=== PATIENT | female | born 1940 | race Two or more races ===

== ENCOUNTER 2024-12-19 15:27 | Inpatient (IN) | payer MEDICARE ==
[~2024-12-19] VITALS: Ht 160 cm; Wt 79.6 kg
[~2024-12-19 15:27] MED LIST: ALBU108A5 IN; ALPR0.254 PO; CETI-120 PO; CLOT1CRE7 TOP; FURO40TA4 PO; LEVO25TA6 PO; OXYB5TAB14 PO; SEMA2INJ3 SC; SIMV20TA20 PO; ZOLP10TA6 PO
--- NOTE | 2024-12-19 16:19 | ECG ---
[facility] Test Date: 2024-12-19 Test Time: 16:02:26 Pat Name: SOHAN RODRIGUEZ Department: er Room: 0276T Gender: F Activities Attendant: gp : 1940 Requested By: LEW DOE Order Number: [id number] Reading MD: Paresh Carter Measurements Intervals [place] Rate: 65 P: 49 ND: 149 QRS: -82 QRSD: 122 T: 102 QT: 472 QTc: 491 Interpretive Statements Atrial-ventricular dual-paced complexes No further analysis attempted due to paced rhythm Electronically Signed On 12-21-2024 8:52:57 PST by Paresh Carter Please click the below link to view image of tracing.
--- NOTE | 2024-12-19 16:48 | DVH ---
EXAM: XY L SHOULDER 2+ VIEW XRAY HISTORY: fell , left shoulder pain COMPARISON: None TECHNIQUE: Four views of the left shoulder were performed. FINDINGS: See below IMPRESSION: 1. Fracture of the left proximal humerus including mildly displaced fracture of the greater tuberosit y and mildly impacted fracture of the surgical neck, consistent with 3 part fracture in the Neer clas sification. 2. Acromioclavicular hypertrophy. 3. Left chest AICD and probable cardiomegaly, not fully imaged here. 4. Surgical clips of the base of the neck likely related to prior thyroidectomy.
[2024-12-19 17:00] LABS: Basophils # (auto) 0 10 ^3/uL (0-0.2); Eosinophils # (auto) 0.1 10 ^3/uL (0-0.8); Mean Corpuscular Hgb Conc. 33.9 g/dL (32.0-36.0); Monocytes # (auto) 0.4 10 ^3/uL (0-1.3)
[2024-12-19 17:02] LABS: Basophils % (auto) 0.5 % (0.0-2.0); Eosinophils % (auto) 1.3 % (0.0-7.0); Hematocrit 37.4 % (36.0-46.0); Hemoglobin 12.7 g/dL (12.2-16.2); Lymphocytes # (auto) 1.1 10 ^3/uL (0.4-5.4); Lymphocytes % (auto) 15.1 % (10.0-50.0); Mean Corpuscular Hemoglobin 35.5 pg (28.0-32.0); Mean Corpuscular Volume 104.9 fL (80.0-100.0); Monocytes % (auto) 4.9 % (0.0-12.0); Neutrophils # (auto) 5.7 10 ^3/uL (1.6-8.6); Neutrophils % (auto) 78.2 % (37.0-80.0); Nucleated Red Blood Cells % 0.1 %; Platelet Count (auto) 195 10^3/uL (140-450); Red Blood Cells 3.56 10^6/uL (4.0-5.20); Red Cell Distribution Width 13.3 % (11.8-14.3); White Blood Cell 7.3 10^3/uL (4.4-10.8)
--- NOTE | 2024-12-19 17:20 | ED.PDOC ---
Musculoskeletal HPI Comments 84y F who presents to the ED via EMS for chief complaint of fall injury. Pt in the ED, states she was doing yard work and states she slipped and fell while in the mud today. Pt states she does not remember having a syncopal but states she felt dizzy and called EMS. Pt states in the ED, she has pain by the L shoulder and states she has pain while attempting to move her L shoulder. Pt in the ED, is alert and oriented x 4 and able to answer all questions. Pt otherwise in the ED states, she has dizziness and generalized headache but otherwise denies any other symptoms. Pt otherwise denies any other symptoms at this time. 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 Family History Family History: Unknown Social History Smoker: Non-Smoker Alcohol: Denies ETOH Use Drugs: Denies Drug Use Lives In: Home Constitutional: denies: chills, diaphoresis, fatigue, fever, malaise, sweats, weakness, others EENTM: denies: blurred vision, double vision, ear bleeding, ear discharge, ear drainage, ear pain, ear ringing, eye pain, eye redness, hearing loss, mouth pain, mouth swelling, nasal discharge, nose bleeding, nose congestion, nose pain, photophobia, tearing, throat pain, throat swelling, voice changes, others Respiratory: denies: cough, hemoptysis, orthopnea, SOB at rest, shortness of breath, SOB with excertion, stridor, wheezing, others Cardiovascular: denies: chest pain, dizzy spells, diaphoresis, Dyspnea on exertion, edema, irregular heart beat, left arm pain, lightheadedness, palpitations, PND, syncope, others Gastrointestinal: denies: abdomen distended, abdominal pain, blood streaked bowels, constipated, diarrhea, dysphagia, difficulty swallowing, hematemesis, melena, nausea, poor appetite, poor fluid intake, rectal bleeding, rectal pain, vomiting, others Genitourinary: denies: abnormal vagina bleeding, burning, dyspareunia, dysuria, flank pain, frequency, hematuria, incontinence, pain, , vagina discharge, urgency, others Neurological: reports: dizziness; denies: fainting, headache, left sided numbness, left sided weakness, numbness, paresthesia, pre-existing deficit, right sided numbness, right sided weakness, seizure, speech problems, tingling, tremors, weakness, others Musculoskeletal: reports: joint pain (L shoulder); denies: back pain, gout, joint swelling, muscle pain, muscle stiffness, neck pain, others Integumetry: denies: bruises, change in color, change in hair/nails, dryness, laceration, lesions, lumps, rash, wounds, others Allergic/Immunocompromised: denies: Difficulty Healing, Frequent Infections, Hives, Itching, others Hematologic/Lymphatic: denies: anemia, blood clots, easy bleeding, easy bruising, swollen glands, others Endocrine: denies: excessive hunger, excessive sweating, excessive thirst, excessive urination, flushing, intolerance to cold, intolerance to heat, unexplained weight gain, unexplained weight loss, others Psychiatric: denies: anxiety, bipolar disorder, depression, hopeless, panic disorder, schizophrenia, sleepless, suicidal, others All Other Systems: Reviewed and Negative Physical Exam General Appearance: Mild Distress, Normal HEENT: Normal ENT Inspection, Pharynx Normal, TMs Normal Neck: Full Range of Motion, Non-Tender, Normal, Normal Inspection Respiratory: Chest Non-Tender, Lungs Clear, No Accessory Muscle Use, No Respiratory Distress, Normal Breath Sounds Cardiovascular: Tachycardia Breast Exam: Deferred Gastrointestinal: No Organomegaly, Non Tender, No Pulsatile Mass, Normal Bowel Sounds, Soft Genitalia: Deferred Pelvic: Deferred Rectal: Deferred Extremities: Tender, Other (Tenderness left shoulder and proximal humerus) Musculoskeletal : Apperance: Normal Neurologic: Alert, shirt turner II-XII nml as Tested, No Motor Deficits, Normal Affect, Normal Mood, No Sensory Deficits Cerebellar Function: Normal Reflexes: Normal Skin: Dry, Normal Color, Warm Lymphatic: No Adenopathy Was a procedure done? Was a procedure done?: No Differential Diagnosis EXT Differential Diagnosis: Fracture, Sprain, Dislocation, DJD X-Ray, Labs, Meds, VS Vital Signs Date Time Temp Pulse Resp B/P (MAP) Pulse Ox O2 Delivery O2 Flow Rate FiO2 12/19/24 18:02 146 12/19/24 16:02 65 12/19/24 15:35 98.3 67 18 118/70 (86) 96 Lab Test 12/19/24 16:44 Range/Units White Blood Count 7.3 4.4-10.8 10^3/uL Red Blood Count 3.56 L 4.0-5.20 10^6/uL Hemoglobin 12.7 12.2-16.2 g/dL Hematocrit 37.4 36.0-46.0 % Mean Corpuscular Volume 104.9 H 80.0-100.0 fL Mean Corpuscular Hemoglobin 35.5 H 28.0-32.0 pg Mean Corpuscular Hemoglobin Concent 33.9 32.0-36.0 g/dL Red Cell Distribution Width 13.3 11.8-14.3 % Platelet Count 195 140-450 10^3/uL Mean Platelet Volume 9.5 6.9-10.8 fL Neutrophils (%) (Auto) 78.2 37.0-80.0 % Lymphocytes (%) (Auto) 15.1 10.0-50.0 % Monocytes (%) (Auto) 4.9 0.0-12.0 % Eosinophils (%) (Auto) 1.3 0.0-7.0 % Basophils (%) (Auto) 0.5 0.0-2.0 % Neutrophils # (Auto) 5.7 1.6-8.6 10 ^3/uL Lymphocytes # (Auto) 1.1 0.4-5.4 10 ^3/uL Monocytes # (Auto) 0.4 0-1.3 10 ^3/uL Eosinophils # (Auto) 0.1 0-0.8 10 ^3/uL Basophils # (Auto) 0 0-0.2 10 ^3/uL Nucleated Red Blood Cells 0.1 % Sodium Level 141 136-145 mmol/L Potassium Level 4.4 3.5-5.1 mmol/L Chloride Level 104 98-107 mmol/L Carbon Dioxide Level 30 20-31 mmol/L Anion Gap 7 5-15 Blood Urea Nitrogen 29 H 9-23 mg/dL Creatinine 1.20 H 0.550-1.02 mg/dL Glomerular Filtration Rate Calc 45 >90 mL/min BUN/Creatinine Ratio 24.2 H 10.0-20.0 Serum Glucose 106 74-106 mg/dL Calcium Level 9.9 8.7-10.4 mg/dL Magnesium Level 2.6 1.6-2.6 mg/dL Total Bilirubin 1.1 H 0.2-1.0 mg/dL Aspartate Amino Transferase (AST) 31 13-40 U/L Alanine Aminotransferase (ALT) 34 7-40 U/L Alkaline Phosphatase 104 46-116 U/L Troponin I High Sensitivity 8 </=34 ng/L Total Protein 7.0 5.7-8.2 g/dL Albumin 4.9 H 3.2-4.8 g/dL Current Medications Medications (Trade) Dose Ordered Sig/Chris Route Start Time Stop Time Status Last Admin Adenosine (Adenosine) 6 mg ONCE ONCE IV 12/19/24 18:15 12/19/24 18:16 DC 12/19/24 18:14 [place] [id number] Ph: [phone] DIAGNOSTIC IMAGING Diagnostic Imaging Report : [id number] Signed PATIENT: SOHAN RODRIGUEZ ACCT: [id number] UNIT: [id number] : 1940 LOC: ER ROOM / BED: / AGE / SEX: 84 / F ADM STATUS: REG ER SERVICE 1620 ORDERING PHYSICIAN: LEW DOE MD PROCEDURE(s): LSHD2 - L SHOULDER 2+ VIEW XRAY REASON: fell , left shoulder pain ORDER NUMBER(s): [id number], ACCESSION NUMBER(s): [id number] EXAM: XY L SHOULDER 2+ VIEW XRAY HISTORY: fell , left shoulder pain COMPARISON: None TECHNIQUE: Four views of the left shoulder were performed. FINDINGS: See below IMPRESSION: 1. Fracture of the left proximal humerus including mildly displaced fracture of the greater tuberosity and mildly impacted fracture of the surgical neck, consistent with 3 part fracture in the Neer classification. 2. Acromioclavicular hypertrophy. 3. Left chest AICD and probable cardiomegaly, not fully imaged here. 4. Surgical clips of the base of the neck likely related to prior thyroidectomy. ATED BY: NIKKO YANEZ MD DICTATED DATE/TIME: 12/19/24 1645 SIGNED BY: NIKKO YANEZ MD SIGNED DATE/TIME: 12/19/24 1645 CC: Time of 1ST Reevaluation: 17:50 Reevaluation 1ST: Unchanged Time of 2ND Reevaluation: 18:41 Reevaluation 2ND: Unchanged Patient Education/Counseling: Diagnosis, Treatment Family Education/Counseling: No Family Present Departure 1 Departure Time of Disposition: 18:41 Impression: Primary Impression: Syncope and collapse Additional Impressions: Left humeral fracture SVT (supraventricular tachycardia) Pacemaker malfunction Disposition: 09 ADMITTED INPATIENT Admit to: Tele Condition: Guarded Discharged With: Self Critical Care Note Critical Care Time?: Yes (45 min-critical care time only) Critical care comment: Total critical care time: Approximately 36 minutes Due to a high probability of clinically significant, life threatening deterioration, the patient required my highest level of preparedness to intervene emergently and I personally spent this critical care time directly and personally managing the patient. This critical care time included obtaining a history; examining the patient; pulse oximetry; ordering and review of studies; arranging urgent treatment with development of a management plan; evaluation of patient's response to treatment; frequent reassessment; and, discussions with other providers. This critical care time was performed to assess and manage the high probability of imminent, life-threatening deterioration that could result in multi-organ failure. It was exclusive of separately billable procedures and treating other patients. Stability Stability form required: No Heart Score Heart Score: Heart Score Response (Comments) Value History Moderate Suspicious 1 EKG Repolarization Disturb 1 Age >65 2 Risk Factors 1 or 2 risk factors 1 Troponin Normal limit 0 Total 5 I personally scribed for LEW DOE MD ([email or web address]) on 12/19/24 at 17:20. Electronically submitted by Emelina Chambers ([email or web address]). LEW DOE MD Dec 19, 2024 17:20
[2024-12-19 17:23] LABS: Alanine Aminotransferase 34 U/L (7-40); Alkaline Phosphatase 104 U/L (46-116); Anion Gap 7 (5-15); Aspartate Aminotransferase 31 U/L (13-40); BUN/Creatinine Ratio 24.2 (10.0-20.0); Bilirubin, Total 1.1 mg/dL (0.2-1.0); Calcium 9.9 mg/dL (8.7-10.4); Carbon Dioxide 30 mmol/L (20-31); Chloride 104 mmol/L (98-107); Glucose 106 mg/dL (74-106); Magnesium 2.6 mg/dL (1.6-2.6); Potassium 4.4 mmol/L (3.5-5.1); Sodium 141 mmol/L (136-145)
[2024-12-19 17:29] LABS: Albumin 4.9 g/dL (3.2-4.8); Blood Urea Nitrogen 29 mg/dL (9-23)
[2024-12-19] MEDS: ADENOSINE 6 MG/2 ML INJ IV ONE (18:14)
[2024-12-19 18:45] VITALS: PULSE 65; RESP 22; O2SAT 96
--- NOTE | 2024-12-19 19:08 | DVH ---
EXAM: XR Chest, 1 View CLINICAL INDICATION: SOB, syncope TECHNIQUE: Frontal view of the chest. COMPARISON: None FINDINGS: LUNGS AND PLEURAL SPACES: Unremarkable. No consolidation. No pneumothorax. HEART: Cardiomegaly without overt failure. MEDIASTINUM: Unremarkable. Normal mediastinal contour. BONES/JOINTS: Unremarkable. No acute fracture. TUBES, LINES AND DEVICES: Left-sided cardiac pacemaker. OTHER FINDINGS: . IMPRESSION: Cardiomegaly without overt failure.
[2024-12-19 19:30] VITALS: PULSE 65; RESP 10; O2SAT 97
[2024-12-19] MEDS: ONDANSETRON HCL 4 MG/2 ML VIAL IV ONE (20:30)
[2024-12-19] MEDS: MORPHINE SULFATE 4 MG/ML SYR/VIAL IV ONE (20:41)
[2024-12-19] MEDS ORDERED: IPRATROPIUM BROM 0.5 MG/2.5ML INH SOL NEB PRN (20:45)
[2024-12-19] MEDS ORDERED: LEVALBUTEROL HCL 1.25 MG/3 ML NEB NEB PRN (20:45)
[2024-12-19] MEDS: HYDROmorphone HCL 2 MG/ML VL/or syr IV ONE (21:35)
[2024-12-19 22:27] VITALS: O2SAT 100
[2024-12-19] MEDS: MELATONIN 5 MG TAB PO ONE (22:31)
[2024-12-19] MEDS: SODIUM CHLORIDE 0.9% 250 ML IV ONE (22:32)
[2024-12-19 22:37] LABS: Hematocrit 37.6 % (36.0-46.0); Hemoglobin 12.6 g/dL (12.2-16.2)
[2024-12-19 22:44] VITALS: PULSE 65; RESP 18; O2SAT 100
--- NOTE | 2024-12-19 22:55 | DVH ---
Carotid Duplex Clinical History: dizziness Comparison: None Technique: Duplex Doppler evaluation of the extracranial carotid and vertebral arteries including color Doppler and spectral/pulsed waveform analysis was performed. Findings: RIGHT SIDE: The peak systolic velocities are 75 cm/s in the CCA, 100 cm/s in the ICA. The ICA/CCA ratio is 1.3. The external carotid artery is patent with peak systolic velocity of 59 cm/s proximally. There is appropriate antegrade flow in the right vertebral artery. LEFT SIDE: The peak systolic velocities are 43 cm/s in the CCA, 148 cm/s in the ICA. The ICA/CCA ratio is 3.5. The external carotid artery is patent with peak systolic velocity of 48 cm/s proximally. There is appropriate antegrade flow in the left vertebral artery. IMPRESSION: 1. Right-side :No hemodynamically significant stenosis 2. Left side: 50-69% stenosis of the left internal carotid artery. Reference: Radiology 2003; 229:340-346 Normal ICA PSV is <125 cm/sec and no plaque or intimal thickening is visible sonographically additional criteria include ICA/CCA PSV ratio <2.0 and ICA EDV <40 cm/sec <50% ICA stenosis ICA PSV is <125 cm/sec and plaque or intimal thickening is visible sonographically additional criteria include ICA/CCA PSV ratio <2.0 and ICA EDV <40 cm/sec 50-69% ICA stenosis ICA PSV is 125-230 cm/sec and plaque is visible sonographically additional criteria include ICA/CCA PSV ratio of 2.0-4.0 and ICA EDV of 40-100 cm/sec 70% ICA stenosis but less than near occlusion ICA PSV is >230 cm/sec and visible plaque and luminal narrowing are seen at garcia-scale and color Dopp ler ultrasound (the higher the Doppler parameters lie above the threshold of 230 cm/sec, the greater the likelihood of severe disease) additional criteria include ICA/CCA PSV ratio >4 and ICA EDV >100 cm/sec
[2024-12-19 22:58] LABS: Prothrombin Time 10.6 sec (9.3-11.8)
[2024-12-19 23:01] LABS: Folate (Folic Acid) 18.57 ng/mL (>5.38)
[2024-12-19 23:06] VITALS: BP 124/51; PULSE 112; PULSE 65; RESP 17; TEMP 97.7; O2SAT 100
--- NOTE | 2024-12-19 23:08 | DVH ---
EXAM: CT HEAD WITHOUT CONTRAST INDICATION: s/p fall TECHNIQUE: CT of the head without intravenous contrast. Radiation Dose : 1. Head: CT Dose: CTDI volume is 65.73 mGy. Dose-length product is 1053.36 mGy*cm The dose indicators for CT are the volume Computed Tomography (CT) Dose Index (CTDIvol) and the Dose Length Product (DLP), and are measured in units of mGy and mGy-cm, respectively. These indicators are not patient dose, but values generated from the CT scanner acquisition factors. The report includes radiation exposure data for exposures received during this examination. COMPARISON: None FINDINGS: There is no evidence of acute intracranial hemorrhage, extra-axial collection, mass effect, midline s hift, herniation or hydrocephalus. The ventricles, sulci and cisterns are age appropriate. The garcia-white differentiation is intact. Patchy periventricular and subcortical white matter hypoattenuation is nonspecific but may be related to small vessel ischemic disease. The visualized paranasal sinuses and mastoid air cells are clear. The surrounding soft tissues and osseous structures are unremarkable. IMPRESSION: 1. No acute intracranial abnormality. Radiation optimization: All CT scans at this facility use at least one of these dose optimization fariha hniques: automated exposure control mA and/or kV adjustment per patient size (includes targeted exam s where dose is matched to clinical indication) or iterative reconstruction.
[2024-12-19 23:12] LABS: Urine Bacteria FEW /hpf (None Seen); Urine Blood Negative /uL (Negative); Urine Clarity Clear (Clear); Urine Color Light-Yellow (Yellow); Urine Protein, UAD Negative (Negative); Urine Squamous Epithelial Cell FEW /hpf (<5); Urine Urobilinogen Normal (Negative); Urine WBC < 1 /HPF (0-5)
--- NOTE | 2024-12-19 23:35 | DVHHPRES ---
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 According to the patient, on 12/19/2024 around 1:00 p.m. while he was doing yard work she felt dizzy and then fell on her knees, face and left arm. Per patient, she did not lose consciousness. Patient subsequently laid there for a little bit and hit her alarm button which prompted her daughter to come and she was subsequently brought to the hospital by the EMS. Patient is AOx4, however, somewhat of a poor historian in terms of remembering details associated with the fall. Patient states she does not remember much details until she hit the ground. Patient denies any confusion, loss of bowel or bladder control or tongue biting. Patient's own insight is that she felt dizzy due to a lack of food intake yesterday. On review of systems, patient is complaining of fever, chills, headache and shortness of breath on exertion. Left shoulder x-ray showed fracture of left proximal humerus including mildly displaced fracture greater tuberosity and mildly i mpacted surgical neck of humerus: 3 part fracture. Past Medical History heart failure with reduced ejection fraction 30% s/p AICD, hypothyroidism s/p thyroidectomy, COPD on home oxygen 2 L, hypertension, coronary artery disease, anxiety, Past Surgical History Thyroidectomy, cholecystectomy, hysterectomy, tonsillectomy Past Social History Smoking: Quit smoking 20 years ago, prior to that smoked 2-3 cigarettes daily for 4 years Alcohol: Denies Drugs: Denies Review of Systems Constitutional: Yes: Chills; No: Fever, Sweats, Weakness, Malaise, Other Eyes: No: Pain, Vision change, Conjunctivae inflammation, Eyelid inflammation, Other, Redness ENT: No: Ear pain, Ear discharge, Nose pain, Nose discharge, Nose congestion, Mouth pain, Mouth swelling, Throat pain, Throat swelling, Other Respiratory: Shortness of breath, SOB with excertion; No: Cough, Dry, Wheezing, Hemoptysis, Pleuritic Pain, Sputum, Wheezing, Other Cardiovascular: No: Chest Pain, Palpitations, Orthopnea, Paroxysmal Noc. Dyspnea, Edema, Lt Headedness, Other Gastrointestinal: No: Nausea, Vomiting, Abdominal Pain, Diarrhea, Constipation, Melena, Hematochezia, Other Genitourinary: No Dysuria, No Frequency, No Incontinence, No Hematuria, No Retention, No Other Musculoskeletal: No: other, neck pain, shoulder pain, arm pain, back pain, hand pain, leg pain, foot pain Skin: No: Rash, Lesions, Jaundice, Bruising, Other Neurological: No: Weakness, Numbness, Incoordination, Change in speech, Confusion, Seizures, Other Allergies: Coded Allergies: Morphine (Unverified Allergy, Unknown, 12/19/24) Penicillins (Unverified Allergy, Unknown, 12/19/24) Medications Current Medications Medications Dose Ordered Sig/Chris Route Start Time Stop Time Status Last Admin Dose Admin Ipratropium Superior 0.5 mg Q8HPRN PRN NEB 12/19/24 20:45 Levalbuterol HCl 1.25 mg Q8HP PRN NEB 12/19/24 20:45 Levothyroxine Sodium 75 mcg QAM@0600 PO 12/20/24 06:00 Exam Vital Signs Vital Signs Date Time Temp Pulse Resp B/P (MAP) Pulse Ox O2 Delivery O2 Flow Rate FiO2 12/19/24 22:44 65 18 100 3.0 12/19/24 22:27 Nasal Cannula 12/19/24 22:27 32 12/19/24 22:00 113/38 (63) 12/19/24 19:30 98.1 98.1 General Appearance: Alert, Oriented X3, Cooperative, No acute distress HEENT: Atraumatic, PERRLA, EOMI, Mucous membr. moist/pink Respiratory: Clear to auscultation, Normal air movement Cardiovascular: Regular rate, Normal S1, Normal S2 Abdominal: Normal bowel sounds, Other (Mild generalized tenderness to palpation in the lower abdomen) Extremities: Other (1+ lower extremity edema, stasis dermatitis on anterior aspect of bilateral lower extremities) Neuro: Normal speech, Sensation intact Psych/Mental Status: Mental status NL, Mood NL Labs/Xrays Labs Test 12/19/24 22:41 12/19/24 22:26 12/19/24 18:41 12/19/24 16:44 Range/Units Urine Color Light-yellow Yellow Urine Clarity Clear Clear Urine pH 6.0 5.0-9.0 Urine Specific [place] 1.010 1.001-1.035 Urine Protein Negative Negative Urine Ketones Negative Negative Urine Blood Negative Negative /uL Urine Nitrite Negative Negative Urine Bilirubin Negative Negative Urine Urobilinogen Normal Negative mg/dL Urine Leukocyte Esterase Negative Negative /uL Urine RBC 1 0 - 4 /hpf Urine Microscopic WBC < 1 0-5 /HPF Urine Squamous Epithelial Cells Few <5 /hpf Urine Bacteria Few H None Seen /hpf Urine Glucose Normal Normal mg/dL Hemoglobin 12.6 12.2-16.2 g/dL Hematocrit 37.6 36.0-46.0 % Prothrombin Time 10.6 9.3-11.8 sec Prothrombin Time INR 1.00 0.9-1.15 Vitamin B12 Level 359 211-911 pg/mL Vitamin D 25-Hydroxy 69.9 30.0-100 ng/mL Folic Acid 18.57 >5.38 ng/mL Thyroid Stimulating Hormone (TSH) 0.55 0.55-4.78 uIU/mL Troponin I High Sensitivity 9 </=34 ng/L White Blood Count 7.3 4.4-10.8 10^3/uL Red Blood Count 3.56 L 4.0-5.20 10^6/uL Mean Corpuscular Volume 104.9 H 80.0-100.0 fL Mean Corpuscular Hemoglobin 35.5 H 28.0-32.0 pg Mean Corpuscular Hemoglobin Concent 33.9 32.0-36.0 g/dL Red Cell Distribution Width 13.3 11.8-14.3 % Platelet Count 195 140-450 10^3/uL Mean Platelet Volume 9.5 6.9-10.8 fL Neutrophils (%) (Auto) 78.2 37.0-80.0 % Lymphocytes (%) (Auto) 15.1 10.0-50.0 % Monocytes (%) (Auto) 4.9 0.0-12.0 % Eosinophils (%) (Auto) 1.3 0.0-7.0 % Basophils (%) (Auto) 0.5 0.0-2.0 % Neutrophils # (Auto) 5.7 1.6-8.6 10 ^3/uL Lymphocytes # (Auto) 1.1 0.4-5.4 10 ^3/uL Monocytes # (Auto) 0.4 0-1.3 10 ^3/uL Eosinophils # (Auto) 0.1 0-0.8 10 ^3/uL Basophils # (Auto) 0 0-0.2 10 ^3/uL Nucleated Red Blood Cells 0.1 % Sodium Level 141 136-145 mmol/L Potassium Level 4.4 3.5-5.1 mmol/L Chloride Level 104 98-107 mmol/L Carbon Dioxide Level 30 20-31 mmol/L Anion Gap 7 5-15 Blood Urea Nitrogen 29 H 9-23 mg/dL Creatinine 1.20 H 0.550-1.02 mg/dL Glomerular Filtration Rate Calc 45 >90 mL/min BUN/Creatinine Ratio 24.2 H 10.0-20.0 Serum Glucose 106 74-106 mg/dL Calcium Level 9.9 8.7-10.4 mg/dL Magnesium Level 2.6 1.6-2.6 mg/dL Total Bilirubin 1.1 H 0.2-1.0 mg/dL Aspartate Amino Transferase (AST) 31 13-40 U/L Alanine Aminotransferase (ALT) 34 7-40 U/L Alkaline Phosphatase 104 46-116 U/L Total Protein 7.0 5.7-8.2 g/dL Albumin 4.9 H 3.2-4.8 g/dL Assessment/Plan Assessment/Plan S/p fall Left humerus 3 part fracture - head CT: No acute intracranial abnormality - left shoulder x-ray: Fracture of the left proximal humerus including mildly displaced fracture of the greater tuberosity and mildly impacted fracture of the surgical neck, consistent with 3 part fracture in the Neer classification. Acromioclavicular hypertrophy. Left chest AICD and probable cardiomegaly, not fully imaged here. Surgical clips of the base of the neck likely related to prior thyroidectomy. - [place] 5 q.6 hours as needed for pain - consulted orthopedic - ordered CXR, PT/PTT, blood type and screen - placed on cardiac diet, NPO starting midnight Dizziness: Rule out cardiac etiology Brief run of SVT - carotid Doppler: Right-side :No hemodynamically significant stenosis. Left side: 50-69% stenosis of the left internal carotid artery. - orthostatic vital signs Possible CEASAR hemodynamically mediated/VMN on questionable CKD - IV NS 250 cc bolus - monitor History of coronary artery disease s/p CABG Chronic heart failure with reduced ejection fraction 30% s/p AICD Hypertension - CXR: Cardiomegaly without overt failure. - currently holding home medications spironolactone, furosemide, metoprolol due to soft blood pressures - consulted cardiology, Dr. Maya Chronic respiratory failure on home oxygen 2 L COPD, currently stable - monitor - ipratropium levalbuterol med nebs Q 8 hours as needed - ordered COVID and influenza testing Hypothyroidism s/p thyroidectomy - resumed home medication levothyroxine 75 mcg DVT prophylaxis: SCDs Goals of care: Full code, discussed for >16 minutes on 12/19/2024 Plan discussed with patient Plan discussed with Dr. Lambert Plan discussed with: Patient, Other (RN) My Orders Orders - HECTOR GOSS Procedure Category Date Status Time Admit ADMIT 12/19/24 Transmitted 20:40 Code Status CODE 12/19/24 Transmitted 20:40 Vital Signs ALANNAH 12/19/24 In Process 20:40 Review Orders With ALANNAH 12/19/24 In Process Adm.Md 20:40 Notify Md Of Changes ALANNAH 12/19/24 In Process From Base 20:40 Advance Directive ALANNAH 12/19/24 In Process 20:40 Patient Condition ORDERS 12/19/24 Transmitted 20:40 Allergies ALANNAH 12/19/24 In Process 20:40 Notify Md Of Changes ALANNAH 12/19/24 In Process From Base 20:40 * Orthopedic Consult CONS 12/19/24 Transmitted 20:40 *Cons[address] Dr[address] Maya CONS 12/19/24 Transmitted [place] 20:40 Carotid Duplx W Color US 12/19/24 Resulted DOP 20:[address] 12/19/24 Resulted 20:40 Cardiac DIET 12/20/24 Transmitted Diet-2gna,Lofat,Lochol Breakfast Npo After Midnight DIET 12/20/24 Transmitted Breakfast Sequential ALANNAH 12/19/24 In Process Compression Device 20:40 Ipratropium Medneb PHA 12/19/24 In Process (Atrovent Medneb) 20:45 Levalbuterol Hcl PHA 12/19/24 In Process (Xopenex Medneb) 20:45 Levothyroxine Tablet PHA 12/20/24 In Process (Synthroid Tablet) 06:00 Date of Service: Dec 19, 2024 Billing Provider: SARA RICHARDSON MD Common Visit Codes: [id number] INP/OBS CARE (HIGH) HECTOR GOSS Dec 19, 2024 23:35 SARA RICHARDSON MD Dec 20, 2024 09:39
[2024-12-20] VITALS (9 sets, daily range): BP systolic 97–122; BP diastolic 43–68; PULSE 62–75; RESP 16–18; TEMP 97.8–98.2; O2SAT 94–100
[2024-12-20] MEDS: HYDROcodone-ACET 5/325MG TAB PO PRN (01:51)
[2024-12-20 02:08] LABS: COVID19 ANTIGEN SOFIA FIA NEGATIVE (NEGATIVE); Rapid Influenza A Negative (Negative); Rapid Influenza B Negative (Negative)
[2024-12-20] MEDS: LEVOTHYROXINE SODIUM 25 MCG TAB PO SCH (05:51)
[2024-12-20] MEDS ORDERED: METO25TA93 PO (10:29)
[2024-12-20] MEDS ORDERED: SPIR25TA8 PO (10:29)
[2024-12-20] MEDS ORDERED: POTA-180 PO (10:29)
[2024-12-20 10:59] LABS: Basophils # (auto) 0 10 ^3/uL (0-0.2); Basophils % (auto) 0.4 % (0.0-2.0); Eosinophils # (auto) 0 10 ^3/uL (0-0.8); Hemoglobin 11.5 g/dL (12.2-16.2); Monocytes # (auto) 0.5 10 ^3/uL (0-1.3)
[2024-12-20 11:03] LABS: Eosinophils % (auto) 0.2 % (0.0-7.0); Lymphocytes # (auto) 1.7 10 ^3/uL (0.4-5.4); Lymphocytes % (auto) 20.9 % (10.0-50.0); Mean Corpuscular Hemoglobin 35.5 pg (28.0-32.0); Mean Corpuscular Hgb Conc. 33.8 g/dL (32.0-36.0); Mean Corpuscular Volume 104.8 fL (80.0-100.0); Neutrophils # (auto) 5.9 10 ^3/uL (1.6-8.6); Neutrophils % (auto) 72.5 % (37.0-80.0); Platelet Count (auto) 158 10^3/uL (140-450); Red Blood Cells 3.24 10^6/uL (4.0-5.20); Red Cell Distribution Width 13.1 % (11.8-14.3); White Blood Cell 8.1 10^3/uL (4.4-10.8)
[2024-12-20 11:15] LABS: Anion Gap 9 (5-15); Calcium 9.4 mg/dL (8.7-10.4); Carbon Dioxide 27 mmol/L (20-31); Chloride 105 mmol/L (98-107); Potassium 3.9 mmol/L (3.5-5.1); Sodium 141 mmol/L (136-145)
[2024-12-20 11:21] LABS: BUN/Creatinine Ratio 24.4 (10.0-20.0); Blood Urea Nitrogen 22 mg/dL (9-23); Glucose 85 mg/dL (74-106)
--- NOTE | 2024-12-20 13:06 | DVHPN2 ---
Progress Note - Dictate Date Seen: Dec 19, 2024 Medical Necessity Reason Pt with a Central, PICC or Fol: No Subjective DIZZINESS NEAR SYNCOPE An 84-year-old with dilated cardiomyopathy, now to undergo Bi-V AICD implantation. The patient initially had an AICD implanted in 2009 and since then, the patient had a replacement approximately 6 years ago and now has another replacement in 2023. PERTINENT MEDICAL HISTORY: Significant for hypertension, hyperlipidemia. History of COPD. Remote history of tobacco use, discontinued smoking some 30 years ago. History of heart failure, systolic heart failure with left ventricular ejection fraction less than 30%. CURRENT MEDICATIONS: Include aspirin, Lasix, metoprolol, spironolactone, and simvastatin. She is also on home O2 therapy because of chronic lung disease as well. She denies any history of diabetes. No history of renal insufficiency. Denies any history of CVA. Denies any history of peripheral vascular disease, however. No history of myocardial infarction, even though she had angioplasty of the coronary anatomy. REVIEW OF SYSTEMS: She denies any fever, chills, melena, hematochezia, hematemesis or hemoptysis. No bleeding diathesis. No history of any GI symptomatology, inflammatory bowel disease or irritable bowel syndrome, or diarrhea or constipation. No liver disease. No history of any neurological disorders, such as seizures. Denies any swallowing difficulties. Denies any neurological symptoms as well. vital signs Vital Sign Date Time Temp Pulse Resp B/P (MAP) Pulse Ox O2 Delivery O2 Flow Rate FiO2 12/20/24 10:00 99 Nasal Cannula* 2 12/20/24 08:38 98.2 65 18 108/45 (66) 98.2 Total Intake and Output 12/19/24 12/19/24 12/20/24 14:59 22:59 06:59 Intake Total 150 ml Balance 150 ml medications Current Medications Medications Dose Ordered Sig/Chris Route Start Time Stop Time Status Last Admin Dose Admin Ipratropium [place] 0.5 mg Q8HPRN PRN NEB 12/19/24 20:45 Levalbuterol HCl 1.25 mg Q8HP PRN NEB 12/19/24 20:45 Levothyroxine Sodium 75 mcg QAM@0600 PO 12/20/24 06:00 12/20/24 05:51 75 MCG Acetaminophen/ Hydrocodone Bitart 1 tab Q6HPRN PRN PO 12/20/24 00:00 12/20/24 11:55 1 TAB objective HEENT: Pupils are reactive. Funduscopic exam shows no AV nicking, no exudates, no papilledema. Sclerae are anicteric. Extraocular muscles are intact. Tympanic membranes are moist. Oral mucosa moist. Posterior pharynx without any exudates. NECK: No JVD appreciated. Carotid pulses are 2+ symmetrical. No cervical adenopathy. No supraclavicular adenopathy. PULMONARY: Clear to auscultation. Tympanic to percussion. No rhonchi, no wheezes, no egophony. CARDIOVASCULAR: Regular rate. PMI is diffuse; however, there is a soft 1/6 systolic murmur along the left sternal border. ABDOMEN: Obese. Unable to appreciate an organomegaly. Stool guaiac is negative. Liver approximately 5 cm. No epigastric tenderness, no suprapubic tenderness, no CVA tenderness. NEUROLOGIC: The patient is intact. EXTREMITIES: Distal pulses are present. laboratory and microbiology Laboratory Tests 12/20/24 09:51 Test 12/20/24 09:51 Range/Units Serum Glucose 85 74-106 mg/dL Problem List PT WITH DILATED CM WITH ISCHEMIC COMPONENT NOW WITH DIZZINESS PT HAS A TENDENCY TO SEEK ATTENTION THIS IS HER 5tH ADMISSION IN 6 MONTHS Assessment/Plan INTERROGATE AICD ALL OTHER WORKUP THUS FAR NEGATIVE BNP NL FOR PT LYTES WNL HAVE PHYSICAL THERAPY CHECK ORTHOSTATIC BP Plan discussed with: Patient Critical Care Time(min): 35 ANNEMARIE LUND MD Dec 20, 2024 13:06
[2024-12-20] MEDS ORDERED: ALPRAZolam 0.25 MG TAB PO PRN (13:30)
[2024-12-20] MEDS ORDERED: HYDROmorphone HCL 2 MG/ML VL/or syr IV PRN (13:30)
--- NOTE | 2024-12-20 13:31 | DVHPN2 ---
Progress Note Date Seen: Dec 20, 2024 Medical Necessity Reason Pt with a Central, PICC or Fol: No Subjective Patient reports: No new complaints Review of Systems: HEENT:Normal, CVS:Normal, RESPIRATORY:Normal, GI:Normal, :Normal, MSK:Normal, NEURO:Normal Objective vital signs Vital Sign Date Time Temp Pulse Resp B/P (MAP) Pulse Ox O2 Delivery O2 Flow Rate FiO2 12/20/24 13:07 98.2 65 17 101/49 (66) 95 98.2 12/20/24 10:00 Nasal Cannula* 2 28 Total Intake and Output 12/19/24 12/19/24 12/20/24 15:00 23:00 07:00 Intake Total 150 ml Balance 150 ml medications Current Medications Medications Dose Ordered Sig/Chris Route Start Time Stop Time Status Last Admin Dose Admin Levothyroxine Sodium 75 mcg QAM@0600 PO 12/20/24 06:00 12/20/24 05:51 75 MCG Acetaminophen/ Hydrocodone Bitart 1 tab Q6HPRN PRN PO 12/20/24 00:00 12/20/24 11:55 1 TAB Hydromorphone HCl 0.5 mg Q4HPRN PRN IV 12/20/24 13:30 UNV Levothyroxine Sodium 75 mcg QAM@0600 PO 12/21/24 06:00 UNV Atorvastatin Calcium 20 mg HS PO 12/20/24 22:00 UNV Spironolactone 25 mg DAILY PO 12/21/24 10:00 UNV Examination: GENERAL:Normal, HEENT:Normal, NECK:Normal, LUNGS:Normal, LUNGS:Abnormal (on oxygen), CVS:Normal, ABDOMEN:Normal, MSK:Normal, MSK:Abnormal (left arm sling), SKIN:Normal, NEURO:Normal, :Normal laboratory and microbiology Laboratory Tests 12/20/24 09:51 Test 12/20/24 09:51 Range/Units Serum Glucose 85 74-106 mg/dL Problem List/Assessment/Plan Problem List/Assessment/Plan #1 left humeral fracture: ortho eval #2 chronic systolic heart failure #3 s/p aicd #4 hypothyroidism #5 copd #6 chronic resp failure #7 anxiety advance care planning- full code- time spent 19mins Plan discussed with: Patient My Orders My Orders Orders - THAD LEDEZMA MD Procedure Category Date Status Time Hydromorphone PHA 12/20/24 Logged Injection (Dilaudid 13:30 Levothyroxine Tablet PHA 12/21/24 Logged (Synthroid Tablet) 06:00 Atorvastatin (Lipitor) PHA 12/20/24 Logged 22:00 Spironolactone PHA 12/21/24 Logged (Aldactone) 10:00 Date of Service: Dec 20, 2024 Billing Provider: THAD LEDEZMA MD Common Visit Codes: 51044-[id number] INP/OBS CARE(HIGH) Secondary Visit Codes: 55408-FHKGASGO CARE PLAN 30 MINUTES THAD LEDEZMA MD Dec 20, 2024 13:31
[2024-12-20] MEDS: ATORVASTATIN 20 MG TAB PO SCH (20:24)
[2024-12-21] VITALS (7 sets, daily range): BP systolic 108–130; BP diastolic 59–60; PULSE 65–66; RESP 16–18; TEMP 36.7; O2SAT 95–97
[2024-12-21] MEDS: LEVOTHYROXINE SODIUM 25 MCG TAB PO SCH (05:47)
[2024-12-21] MEDS: FUROSEMIDE 20 MG TAB PO SCH (09:20)
[2024-12-21] MEDS: SPIRONOLACTONE 25 MG TAB PO SCH (09:21)
[2024-12-21] MEDS: POTASSIUM CHL 10 Meq TABLET PO SCH (09:21)
--- NOTE | 2024-12-21 12:52 | DVHINCON2 ---
Date of service: Dec 21, 2024 Referring Physician ED Reason for Consultation Left proximal humerus fracture History of Present Illness Patient is an 84-year-old female with past medical history of heart failure s/p AICD, hypothyroidism s/p thyroidectomy, COPD on home oxygen 2 L, hypertension, coronary artery disease, anxiety, who came in after sustaining a fall. According to the patient, on 12/19/2024 around 1:00 p.m. while she was doing yard work she felt dizzy and then fell on her knees, face and left arm. Per patient, she did not lose consciousness. She was subsequently brought to the hospital by the EMS. On review of systems, patient is complaining of fever, chills, headache and shortness of breath on exertion. Left shoulder x-ray showed fracture of left proximal humerus including mildly displaced fracture greater tuberosity and mildly impacted surgical neck of humerus: 3 part fracture. Past Medical History heart failure with reduced ejection fraction 30% s/p AICD, hypothyroidism s/p thyroidectomy, COPD on home oxygen 2 L, hypertension, coronary artery disease, anxiety, Past Surgical History Thyroidectomy, cholecystectomy, hysterectomy, tonsillectomy, right shoulder arthroplasty Past Social History Smoking: Quit smoking 20 years ago, prior to that smoked 2-3 cigarettes daily for 4 years Alcohol: Denies Drugs: Denies Family History: Patient reports no known family medical history. Allergies: Coded Allergies: Morphine (Unverified Allergy, Unknown, 12/19/24) Penicillins (Unverified Allergy, Unknown, 12/19/24) Home Meds Reported Medications Furosemide (Furosemide) 40 Mg Tab, 1 TAB PO BID for 90 Days, #180 12/20/24 Zolpidem Tartrate (Zolpidem Tartrate) 10 Mg Tab, 1 TAB PO HS for 90 Days, #90 12/20/24 Spironolactone (Spironolactone) 25 Mg Tab, 1 TAB PO DAILY for 90 Days, #90 12/20/24 Semaglutide (Ozempic) 2 Mg/3 Ml Inj, 0.5 MG SC QWEEKLY for 28 Days, #3 12/20/24 Albuterol Sulfate (Albuterol Sulfate Hfa) 108 Mcg/Act Aer, 2 PUFF IN BID PRN for 50 Days, #8.5 12/20/24 Oxybutynin Chloride (Oxybutynin Chloride) 5 Mg Tab, 10 MG PO BID for 85 Days, #170 12/20/24 Alprazolam (Alprazolam) 0.25 Mg Tab, 1 TAB PO BID PRN for 30 Days, #60 12/20/24 Clotrimazole (Topical) (Clotrimazole Anti-Fungal) 1 % Cre, 1 APPLIC TOP DAILY for 30 Days, #60 12/20/24 Levothyroxine Sodium (Levothyroxine Sodium) 25 Mcg Tab, 75 MCG PO DAILY for 90 Days, #90 12/20/24 Cetirizine HCl (Cetirizine Hydrochloride) 10 Mg Tab, 1 TAB PO DAILY for 90 Days, #90 12/20/24 Metoprolol Succinate (Metoprolol Succinate Er) 25 Mg Tab, 1 TAB PO DAILY for 90 Days, #90 12/20/24 Potassium Chloride (Potassium Chloride ER) 20 Meq Tab, 1 TAB PO DAILY for 90 Days, #90 12/20/24 Simvastatin (Simvastatin) 20 Mg Tab, 1 TAB PO DAILY for 90 Days, #90 12/20/24 Current Medications Current Medications Medications (Trade) Dose Ordered Sig/Chris Route PRN Reason Start Time Stop Time Status Last Admin Hydromorphone HCl (Dilaudid Injection) 0.5 mg Q4HPRN PRN IV SEVERE PAIN (7-10 PAIN SCALE) 12/20/24 13:30 Levothyroxine Sodium (Synthroid Tablet) 75 mcg QAM@0600 PO 12/21/24 06:00 Atorvastatin Calcium (Lipitor) 20 mg HS PO 12/20/24 22:00 12/20/24 20:24 Spironolactone (Aldactone) 25 mg DAILY PO 12/21/24 10:00 12/21/24 09:21 Alprazolam (Xanax Tablet) 0.25 mg Q12HP PRN PO ANXIETY 12/20/24 13:30 Furosemide (Lasix Tablet) 20 mg DAILY PO 12/21/24 10:00 12/21/24 09:20 Potassium Chloride (Klor-Con Tablet) 10 meq DAILY PO 12/21/24 10:00 12/21/24 09:21 Review of Systems Negative on 10 point review except as above Vital Signs Vital Signs Date Time Temp Pulse Resp B/P (MAP) Pulse Ox O2 Delivery O2 Flow Rate FiO2 12/21/24 11:56 98.0 66 18 123/59 (80) 96 98.0 12/21/24 10:00 Nasal Cannula* 2 28 Physical Exam Examination left shoulder Unable to test range of motion due to guarding Skin intact and no significant edema or deformity She is tender to palpation about the proximal humerus Distal neurovascularly intact X-rays left shoulder reveal a minimally displaced surgical neck and greater tuberosity fracture, osteopenia Labs/Diagnostic Data Labs Test 12/20/24 09:51 12/20/24 07:16 12/20/24 00:10 12/19/24 22:41 Range/Units White Blood Count 8.1 4.4-10.8 10^3/uL Red Blood Count 3.24 L 4.0-5.20 10^6/uL Hemoglobin 11.5 L 12.2-16.2 g/dL Hematocrit 34.0 L 36.0-46.0 % Mean Corpuscular Volume 104.8 H 80.0-100.0 fL Mean Corpuscular Hemoglobin 35.5 H 28.0-32.0 pg Mean Corpuscular Hemoglobin Concent 33.8 32.0-36.0 g/dL Red Cell Distribution Width 13.1 11.8-14.3 % Platelet Count 158 140-450 10^3/uL Mean Platelet Volume 10.0 6.9-10.8 fL Neutrophils (%) (Auto) 72.5 37.0-80.0 % Lymphocytes (%) (Auto) 20.9 10.0-50.0 % Monocytes (%) (Auto) 6.0 0.0-12.0 % Eosinophils (%) (Auto) 0.2 0.0-7.0 % Basophils (%) (Auto) 0.4 0.0-2.0 % Neutrophils # (Auto) 5.9 1.6-8.6 10 ^3/uL Lymphocytes # (Auto) 1.7 0.4-5.4 10 ^3/uL Monocytes # (Auto) 0.5 0-1.3 10 ^3/uL Eosinophils # (Auto) 0 0-0.8 10 ^3/uL Basophils # (Auto) 0 0-0.2 10 ^3/uL Nucleated Red Blood Cells 0.0 % Sodium Level 141 136-145 mmol/L Potassium Level 3.9 3.5-5.1 mmol/L Chloride Level 105 98-107 mmol/L Carbon Dioxide Level 27 20-31 mmol/L Anion Gap 9 5-15 Blood Urea Nitrogen 22 9-23 mg/dL Creatinine 0.90 0.550-1.02 mg/dL Glomerular Filtration Rate Calc 64 >90 mL/min BUN/Creatinine Ratio 24.4 H 10.0-20.0 Serum Glucose 85 74-106 mg/dL Calcium Level 9.4 8.7-10.4 mg/dL B-Type Natriuretic Peptide 474.57 0-100 pg/mL Influenza Type A Antigen Negative Negative Influenza Type B Antigen Negative Negative SARS-CoV-2 Antigen (Rapid) Negative NEGATIVE Urine Color Light-yellow Yellow Urine Clarity Clear Clear Urine pH 6.0 5.0-9.0 Urine Specific [place] 1.010 1.001-1.035 Urine Protein Negative Negative Urine Ketones Negative Negative Urine Blood Negative Negative /uL Urine Nitrite Negative Negative Urine Bilirubin Negative Negative Urine Urobilinogen Normal Negative mg/dL Urine Leukocyte Esterase Negative Negative /uL Urine RBC 1 0 - 4 /hpf Urine Microscopic WBC < 1 0-5 /HPF Urine Squamous Epithelial Cells Few <5 /hpf Urine Bacteria Few H None Seen /hpf Urine Glucose Normal Normal mg/dL Test 12/19/24 22:26 12/19/24 18:41 12/19/24 16:44 Range/Units Prothrombin Time 10.6 9.3-11.8 sec Prothrombin Time INR 1.00 0.9-1.15 Vitamin B12 Level 359 211-911 pg/mL Vitamin D 25-Hydroxy 69.9 30.0-100 ng/mL Folic Acid 18.57 >5.38 ng/mL Thyroid Stimulating Hormone (TSH) 0.55 0.55-4.78 uIU/mL Troponin I High Sensitivity 9 </=34 ng/L Magnesium Level 2.6 1.6-2.6 mg/dL Total Bilirubin 1.1 H 0.2-1.0 mg/dL Aspartate Amino Transferase (AST) 31 13-40 U/L Alanine Aminotransferase (ALT) 34 7-40 U/L Alkaline Phosphatase 104 46-116 U/L Total Protein 7.0 5.7-8.2 g/dL Albumin 4.9 H 3.2-4.8 g/dL Assessment Acute mildly displaced left proximal humerus fracture Plan/Recommendation I recommend continued with left shoulder immobilizer Encourage elbow wrist and hand range of motion Pendulums left shoulder b.i.d. Follow up Orthopedics in 2-3 weeks with new x-rays There are no indications for acute surgical intervention Plan discussed with: Patient USHA SCHMID MD Dec 21, 2024 12:52
--- NOTE | 2024-12-21 14:24 | DVHDS2 ---
Discharge Summary Date of Admission Dec 19, 2024 at 20:40 Date of Discharge: Dec 21, 2024 Labs/Diagnostic Data: Laboratory Results Test 12/20/24 09:51 12/20/24 07:16 12/20/24 00:10 12/19/24 22:41 White Blood Count 8.1 10^3/uL (4.4-10.8) Red Blood Count 3.24 10^6/uL (4.0-5.20) Hemoglobin 11.5 g/dL (12.2-16.2) Hematocrit 34.0 % (36.0-46.0) Mean Corpuscular Volume 104.8 fL (80.0-100.0) Mean Corpuscular Hemoglobin 35.5 pg (28.0-32.0) Mean Corpuscular Hemoglobin Concent 33.8 g/dL (32.0-36.0) Red Cell Distribution Width 13.1 % (11.8-14.3) Platelet Count 158 10^3/uL (140-450) Mean Platelet Volume 10.0 fL (6.9-10.8) Neutrophils (%) (Auto) 72.5 % (37.0-80.0) Lymphocytes (%) (Auto) 20.9 % (10.0-50.0) Monocytes (%) (Auto) 6.0 % (0.0-12.0) Eosinophils (%) (Auto) 0.2 % (0.0-7.0) Basophils (%) (Auto) 0.4 % (0.0-2.0) Neutrophils # (Auto) 5.9 10 ^3/uL (1.6-8.6) Lymphocytes # (Auto) 1.7 10 ^3/uL (0.4-5.4) Monocytes # (Auto) 0.5 10 ^3/uL (0-1.3) Eosinophils # (Auto) 0 10 ^3/uL (0-0.8) Basophils # (Auto) 0 10 ^3/uL (0-0.2) Nucleated Red Blood Cells 0.0 % Sodium Level 141 mmol/L (136-145) Potassium Level 3.9 mmol/L (3.5-5.1) Chloride Level 105 mmol/L (98-107) Carbon Dioxide Level 27 mmol/L (20-31) Anion Gap 9 (5-15) Blood Urea Nitrogen 22 mg/dL (9-23) Creatinine 0.90 mg/dL (0.550-1.02) Glomerular Filtration Rate Calc 64 mL/min (>90) BUN/Creatinine Ratio 24.4 (10.0-20.0) Serum Glucose 85 mg/dL (74-106) Calcium Level 9.4 mg/dL (8.7-10.4) B-Type Natriuretic Peptide 474.57 pg/mL (0-100) Influenza Type A Antigen Negative (Negative) Influenza Type B Antigen Negative (Negative) SARS-CoV-2 Antigen (Rapid) Negative (NEGATIVE) Urine Color Light-yellow (Yellow) Urine Clarity Clear (Clear) Urine pH 6.0 (5.0-9.0) Urine Specific [place] 1.010 (1.001-1.035) Urine Protein Negative (Negative) Urine Ketones Negative (Negative) Urine Blood Negative /uL (Negative) Urine Nitrite Negative (Negative) Urine Bilirubin Negative (Negative) Urine Urobilinogen Normal mg/dL (Negative) Urine Leukocyte Esterase Negative /uL (Negative) Urine RBC 1 /hpf (0 - 4) Urine Microscopic WBC < 1 /HPF (0-5) Urine Squamous Epithelial Cells Few /hpf (<5) Urine Bacteria Few /hpf (None Seen) Urine Glucose Normal mg/dL (Normal) Test 12/19/24 22:26 12/19/24 18:41 12/19/24 16:44 Prothrombin Time 10.6 sec (9.3-11.8) Prothrombin Time INR 1.00 (0.9-1.15) Vitamin B12 Level 359 pg/mL (211-911) Vitamin D 25-Hydroxy 69.9 ng/mL (30.0-100) Folic Acid 18.57 ng/mL (>5.38) Thyroid Stimulating Hormone (TSH) 0.55 uIU/mL (0.55-4.78) Troponin I High Sensitivity 9 ng/L (</=34) Magnesium Level 2.6 mg/dL (1.6-2.6) Total Bilirubin 1.1 mg/dL (0.2-1.0) Aspartate Amino Transferase (AST) 31 U/L (13-40) Alanine Aminotransferase (ALT) 34 U/L (7-40) Alkaline Phosphatase 104 U/L (46-116) Total Protein 7.0 g/dL (5.7-8.2) Albumin 4.9 g/dL (3.2-4.8) Other Laboratory Tests 12/20/24 09:51 Brief Hx & Hospital Course: SEE DICTATED NOTE Condition at Discharge: Fair Final Diagnosis/Problems List LEFT HUMERAL FRACTURE Discharge Disposition: Home Discharge Instruct/Medications Diet: Cardiac 2g Na,low cholest Activity: No Restrictions, As Tolerated Follow Up/Referral: FU WITH ORTHO IN 2 WKS Medications: RESUME HOME MEDS SCRIPT TO PHARMACY Discharge Statement: "Patient was advised to return to the ER or call 911 if any headaches, dizziness, shortness of breath, chest pain, abdominal pain, bleeding, fevers, or worsening of medical condition. Patient was counseled about treatment plan, medications, possible side effects, patientverbalized understanding. All questions were answered to the best of my ability. This discharge took greater then 30 minutes in planning, reviewing documentation, counseling the patient, and discussing with other team members." ASSESSMENT ASSESSMENT Assessment LEFT HUMERAL FRACTURE Date of Service: Dec 21, 2024 Billing Provider: THAD LEDEZMA MD Common Visit Codes: 12457-XFE/OBS DISCH DAY >30min THAD LEDEZMA MD Dec 21, 2024 14:24
[2024-12-21] MEDS ORDERED: HYDR1TAB97 PO (14:26)
--- NOTE | 2024-12-21 14:44 | DVHPN2 ---
Progress Note - Dictate Date Seen: Dec 21, 2024 Medical Necessity Reason Pt with a Central, PICC or Fol: No Subjective DIZZINESS NEAR SYNCOPE An 84-year-old with dilated cardiomyopathy, now to undergo Bi-V AICD implantation. The patient initially had an AICD implanted in 2009 and since then, the patient had a replacement approximately 6 years ago and now has another replacement in 2023. PERTINENT MEDICAL HISTORY: Significant for hypertension, hyperlipidemia. History of COPD. Remote history of tobacco use, discontinued smoking some 30 years ago. History of heart failure, systolic heart failure with left ventricular ejection fraction less than 30%. CURRENT MEDICATIONS: Include aspirin, Lasix, metoprolol, spironolactone, and simvastatin. She is also on home O2 therapy because of chronic lung disease as well. She denies any history of diabetes. No history of renal insufficiency. Denies any history of CVA. Denies any history of peripheral vascular disease, however. No history of myocardial infarction, even though she had angioplasty of the coronary anatomy. REVIEW OF SYSTEMS: She denies any fever, chills, melena, hematochezia, hematemesis or hemoptysis. No bleeding diathesis. No history of any GI symptomatology, inflammatory bowel disease or irritable bowel syndrome, or diarrhea or constipation. No liver disease. No history of any neurological disorders, such as seizures. Denies any swallowing difficulties. Denies any neurological symptoms as well. vital signs Vital Sign Date Time Temp Pulse Resp B/P (MAP) Pulse Ox O2 Delivery O2 Flow Rate FiO2 12/21/24 11:56 98.0 66 18 123/59 (80) 96 98.0 12/21/24 10:00 Nasal Cannula* 2 28 Total Intake and Output 12/20/24 12/20/24 12/21/24 15:00 23:00 07:00 Intake Total 600 ml 150 ml Balance 600 ml 150 ml medications Current Medications Medications Dose Ordered Sig/Chris Route Start Time Stop Time Status Last Admin Dose Admin Levothyroxine Sodium 75 mcg QAM@0600 PO 12/20/24 06:00 12/21/24 05:46 75 MCG Acetaminophen/ Hydrocodone Bitart 1 tab Q6HPRN PRN PO 12/20/24 00:00 12/20/24 21:28 1 TAB Hydromorphone HCl 0.5 mg Q4HPRN PRN IV 12/20/24 13:30 Levothyroxine Sodium 75 mcg QAM@0600 PO 12/21/24 06:00 Atorvastatin Calcium 20 mg HS PO 12/20/24 22:00 12/20/24 20:24 20 MG Spironolactone 25 mg DAILY PO 12/21/24 10:00 12/21/24 09:21 25 MG Alprazolam 0.25 mg Q12HP PRN PO 12/20/24 13:30 Furosemide 20 mg DAILY PO 12/21/24 10:00 12/21/24 09:20 20 MG Potassium Chloride 10 meq DAILY PO 12/21/24 10:00 12/21/24 09:21 10 MEQ objective HEENT: Pupils are reactive. Funduscopic exam shows no AV nicking, no exudates, no papilledema. Sclerae are anicteric. Extraocular muscles are intact. Tympanic membranes are moist. Oral mucosa moist. Posterior pharynx without any exudates. NECK: No JVD appreciated. Carotid pulses are 2+ symmetrical. No cervical adenopathy. No supraclavicular adenopathy. PULMONARY: Clear to auscultation. Tympanic to percussion. No rhonchi, no wheezes, no egophony. CARDIOVASCULAR: Regular rate. PMI is diffuse; however, there is a soft 1/6 systolic murmur along the left sternal border. ABDOMEN: Obese. Unable to appreciate an organomegaly. Stool guaiac is negative. Liver approximately 5 cm. No epigastric tenderness, no suprapubic tenderness, no CVA tenderness. NEUROLOGIC: The patient is intact. EXTREMITIES: Distal pulses are present. laboratory and microbiology Laboratory Tests 12/20/24 09:51 Test 12/20/24 09:51 Range/Units Serum Glucose 85 74-106 mg/dL Problem List PT WITH DILATED CM WITH ISCHEMIC COMPONENT NOW WITH DIZZINESS PT HAS A TENDENCY TO SEEK ATTENTION THIS IS HER 5tH ADMISSION IN 6 MONTHS Assessment/Plan INTERROGATE AICD ALL OTHER WORKUP THUS FAR NEGATIVE BNP NL FOR PT LYTES WNL HAVE PHYSICAL THERAPY CHECK ORTHOSTATIC BP MAY DC HOME FOLLOWUP IN WEEK LEFT HUMERAL FRACTURE SHOULDER IMMOBILIZER Plan discussed with: Patient ANNEMARIE LUND MD Dec 21, 2024 14:44
--- NOTE | 2024-12-21 15:25 | DVHDS ---
DATE OF DISCHARGE: 12/21/2024 HISTORY OF PRESENT ILLNESS: The patient is an 84-year-old lady who came with history of fall and subsequent pain in the left arm. The patient has history of CHF, AICD, COPD, and anxiety. HOSPITAL COURSE: The patient had a CT of the head that showed no acute abnormality. The patient had a shoulder x-ray that showed a fracture of the left proximal humerus, which was mildly displaced. The patient was seen in orthopedic consult by Dr. Pinedo, who recommended conservative treatment with a left shoulder immobilizer. The patient will be discharged home to resume her home medications as well as to be on [place] p.r.n. for pain. The patient will also be placed on [place] p.r.n. for pain. The patient will follow up with Orthopedics in 2 weeks and with her primary care in the next 2 weeks. FINAL DIAGNOSES: Therefore, * Status post fall with left humeral fracture. * Chronic systolic heart failure. * History of automatic implantable cardioverter-defibrillator. * Hypothyroidism. * Chronic obstructive pulmonary disease. * Chronic respiratory failure. * Anxiety. Time spent in discharge planning and review of plan with the patient and nursing was 39 minutes. MD KUSHAL Pitt/[place] TID: [id number] RECEIPT: [id number]
[2024-12-22 09:08] LABS: Hepatitis B Surface Antigen Negative (Negative)
[2024-12-22 09:39] LABS: Hepatitis C Antibody Negative (Negative)
--- NOTE | 2024-12-22 10:23 | ECG ---
[facility] Test Date: 2024-12-19 Test Time: 18:02:24 Pat Name: SOHAN RODRIGUEZ Department: ER Room: [facility]6T A Gender: F Service Desk Lead: HESHAM : 1940 Requested By: LEW DOE Order Number: [id number] Reading MD: Paresh Carter Measurements Intervals [place] Rate: 143 P: 0 KS: 0 QRS: 194 QRSD: 137 T: -4 QT: 330 QTc: 509 Interpretive Statements Wide-QRS tachycardia Nonspecific intraventricular conduction delay Baseline wander in lead(s) V6 Electronically Signed On 12-23-2024 13:09:25 PST by Paresh Carter Please click the below link to view image of tracing.
== END 2024-12-21 16:00 | disposition home or self-care (01) | DRG 562 ==
LOC: EDBD 15:27 → ER 15:27 → TELE 20:40 → TELE-WESTW 23:11
PROVIDERS: ATTEND Internal Medicine
DX: S42.292A Other displaced fracture of upper end of left humerus, initial encounter for closed fracture (principal); N17.0 Acute kidney failure with tubular necrosis; I47.10 Supraventricular tachycardia, unspecified; I50.22 Chronic systolic (congestive) heart failure; J96.10 Chronic respiratory failure, unspecified whether with hypoxia or hypercapnia; Z20.822 Contact with and (suspected) exposure to COVID-19; J44.9 Chronic obstructive pulmonary disease, unspecified; E89.0 Postprocedural hypothyroidism; E78.5 Hyperlipidemia, unspecified; F41.9 Anxiety disorder, unspecified; I11.0 Hypertensive heart disease with heart failure; I25.10 Atherosclerotic heart disease of native coronary artery without angina pectoris; Z96.611 Presence of right artificial shoulder joint; Z87.891 Personal history of nicotine dependence; Z99.81 Dependence on supplemental oxygen; Z95.810 Presence of automatic (implantable) cardiac defibrillator; Z90.710 Acquired absence of both cervix and uterus; Z90.49 Acquired absence of other specified parts of digestive tract; W18.39XA Other fall on same level, initial encounter; Y93.89 Activity, other specified; Y92.89 Other specified places as the place of occurrence of the external cause; Y99.8 Other external cause status
CPT/HCPCS: 36415; 70450; 71045; 73030; 80048; 80053; 81001; 82306; 82607; 82746; 83735; 83880; 84443; 84484; 85014; 85018; 85025; 85610; 86803; 86850; 86900; 86901; 87340; 87426; 87804; 93005; 93886; 99291; G0378; J0153; J2405

== ENCOUNTER 2025-04-17 09:06 | Inpatient (IN) | payer MEDICARE ==
[~2025-04-17] VITALS: Ht 154.9 cm; Wt 81.1 kg
[~2025-04-17 09:06] MED LIST changes: +HYDR1TAB97 PO; +METO25TA93 PO; +POTA-180 PO; +SPIR25TA8 PO
--- NOTE | 2025-04-17 09:38 | ED.PDOC ---
History of Present Illness HPI Comments 84 year old female presents to the ED with a chief compliant of headache s/p fall onset last night. Patient states she was trying to kill a bug when she fell forward, hit head on tile floor. Patient took Tylenol and Aspirin about 5 hours ago, applied ice to forehead shortly after the fall. Patient is currently experiencing headache with lightheadedness. PMHx HTN, HLD, CHF. Denies LOC, chest pain, nausea, vomiting, diarrhea, blurry vision, changes in vision, fevers, chills. No other symptoms or modifying factors present at this time. Chief Complaint: Fall Injury Time Seen by MD: 09:15 Primary Care Provider: ANNEMARIE Reviewed Notes: Medications, Allergies Allergies: Coded Allergies: Ciprofloxacin (Verified Allergy, Unknown, 04/17/25) Ibuprofen (Verified Allergy, Unknown, 04/17/25) Morphine (Unverified Allergy, Unknown, 12/19/24) Penicillins (Unverified Allergy, Unknown, 12/19/24) Home Meds Reported Medications Furosemide (Furosemide) 40 Mg Tab, 1 TAB PO BID for 90 Days, #180 12/20/24 Zolpidem Tartrate (Zolpidem Tartrate) 10 Mg Tab, 1 TAB PO HS for 90 Days, #90 12/20/24 Spironolactone (Spironolactone) 25 Mg Tab, 1 TAB PO DAILY for 90 Days, #90 12/20/24 Semaglutide (Ozempic) 2 Mg/3 Ml Inj, 0.5 MG SC QWEEKLY for 28 Days, #3 12/20/24 Albuterol Sulfate (Albuterol Sulfate Hfa) 108 Mcg/Act Aer, 2 PUFF IN BID PRN for 50 Days, #8.5 12/20/24 Oxybutynin Chloride (Oxybutynin Chloride) 5 Mg Tab, 10 MG PO BID for 85 Days, #170 12/20/24 Alprazolam (Alprazolam) 0.25 Mg Tab, 1 TAB PO BID PRN for 30 Days, #60 12/20/24 Clotrimazole (Topical) (Clotrimazole Anti-Fungal) 1 % Cre, 1 APPLIC TOP DAILY for 30 Days, #60 12/20/24 Levothyroxine Sodium (Levothyroxine Sodium) 25 Mcg Tab, 75 MCG PO DAILY for 90 Days, #90 12/20/24 Cetirizine HCl (Cetirizine Hydrochloride) 10 Mg Tab, 1 TAB PO DAILY for 90 Days, #90 12/20/24 Metoprolol Succinate (Metoprolol Succinate Er) 25 Mg Tab, 1 TAB PO DAILY for 90 Days, #90 12/20/24 Potassium Chloride (Potassium Chloride ER) 20 Meq Tab, 1 TAB PO DAILY for 90 Days, #90 12/20/24 Simvastatin (Simvastatin) 20 Mg Tab, 1 TAB PO DAILY for 90 Days, #90 12/20/24 Discontinued Scripts Hydrocodone-Acetaminophen (Hydrocodone/Acetaminophen 5-325 mg) 1 Tab Tab, 1 TAB PO TIDP PRN for 5 Days, #15 TAB Prov:THAD LEDEZMA MD 12/21/24 Information Source: Patient Mode of Arrival: Ambulatory Severity: Moderate Timing: Hours Duration: Since onset Prehospital treatment: Pain Meds (Tylenol), Other (aspirin ) Past Medical History PAST MEDICAL HISTORY: CHF, High Lipids, HTN, Thyroid Surgical History: Unknown 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 Family History Family History: Unknown Social History Smoker: Non-Smoker Alcohol: Denies ETOH Use Drugs: Denies Drug Use Lives In: Home Constitutional: denies: chills, diaphoresis, fatigue, fever, malaise, sweats, weakness, others EENTM: denies: blurred vision, double vision, ear bleeding, ear discharge, ear drainage, ear pain, ear ringing, eye pain, eye redness, hearing loss, mouth pain, mouth swelling, nasal discharge, nose bleeding, nose congestion, nose pain, photophobia, tearing, throat pain, throat swelling, voice changes, others Respiratory: denies: cough, hemoptysis, orthopnea, SOB at rest, shortness of breath, SOB with excertion, stridor, wheezing, others Cardiovascular: denies: chest pain, dizzy spells, diaphoresis, Dyspnea on exertion, edema, irregular heart beat, left arm pain, lightheadedness, palpitations, PND, syncope, others Gastrointestinal: denies: abdomen distended, abdominal pain, blood streaked bowels, constipated, diarrhea, dysphagia, difficulty swallowing, hematemesis, melena, nausea, poor appetite, poor fluid intake, rectal bleeding, rectal pain, vomiting, others Genitourinary: denies: abnormal vagina bleeding, burning, dyspareunia, dysuria, flank pain, frequency, hematuria, incontinence, pain, , vagina discharge, urgency, others Neurological: reports: dizziness, headache; denies: fainting, left sided numbness, left sided weakness, numbness, paresthesia, pre-existing deficit, right sided numbness, right sided weakness, seizure, speech problems, tingling, tremors, weakness, others Musculoskeletal: denies: back pain, gout, joint pain, joint swelling, muscle pain, muscle stiffness, neck pain, others Integumetry: denies: bruises, change in color, change in hair/nails, dryness, laceration, lesions, lumps, rash, wounds, others Allergic/Immunocompromised: denies: Difficulty Healing, Frequent Infections, Hives, Itching, others Hematologic/Lymphatic: denies: anemia, blood clots, easy bleeding, easy bruising, swollen glands, others Endocrine: denies: excessive hunger, excessive sweating, excessive thirst, excessive urination, flushing, intolerance to cold, intolerance to heat, unexplained weight gain, unexplained weight loss, others Psychiatric: denies: anxiety, bipolar disorder, depression, hopeless, panic disorder, schizophrenia, sleepless, suicidal, others All Other Systems: Reviewed and Negative Physical Exam General Appearance: Moderate Distress, Normal HEENT: Normal ENT Inspection, Pharynx Normal, TMs Normal Neck: Full Range of Motion, Non-Tender, Normal, Normal Inspection Respiratory: Chest Non-Tender, Lungs Clear, No Accessory Muscle Use, No Respiratory Distress, Normal Breath Sounds Cardiovascular: No Edema, No JVD, No Murmur, No Gallop, Normal Peripheral Pulses, Regular Rate/Rhythm Breast Exam: Deferred Gastrointestinal: No Organomegaly, Non Tender, No Pulsatile Mass, Normal Bowel Sounds, Soft Genitalia: Deferred Pelvic: Deferred Rectal: Deferred Extremities: No calf tenderness, Normal capillary refill, Normal inspection, Normal range of motion, Non-tender, No pedal edema Musculoskeletal : Apperance: Normal Neurologic: Alert, fisher oyster II-XII nml as Tested, No Motor Deficits, Normal Affect, Normal Mood, No Sensory Deficits Cerebellar Function: Normal Reflexes: Normal Skin: Bruises (Forehead), Dry, Normal Color, Warm Peripheral Pulses: 3+ Radial (R), 3+ Radial (L) Lymphatic: No Adenopathy Was a procedure done? Was a procedure done?: No Differential Dx Considerations may include: Anxiety Muscle strain X-Ray, Labs, Meds, VS Vital Signs Date Time Temp Pulse Resp B/P (MAP) Pulse Ox O2 Delivery O2 Flow Rate FiO2 04/17/25 10:16 62 18 98 Room Air 04/17/25 10:16 97.9 62 18 121/56 (77) 98 97.9 04/17/25 09:10 98.0 65 20 125/49 (74) 98 98.0 Lab Test 04/17/25 09:30 04/17/25 09:23 Range/Units White Blood Count 4.9 4.4-10.8 10^3/uL Red Blood Count 3.85 L 4.0-5.20 10^6/uL Hemoglobin 13.4 12.2-16.2 g/dL Hematocrit 40.3 36.0-46.0 % Mean Corpuscular Volume 104.6 H 80.0-100.0 fL Mean Corpuscular Hemoglobin 34.7 H 28.0-32.0 pg Mean Corpuscular Hemoglobin Concent 33.2 32.0-36.0 g/dL Red Cell Distribution Width 12.5 11.8-14.3 % Platelet Count 174 140-450 10^3/uL Mean Platelet Volume 9.2 6.9-10.8 fL Neutrophils (%) (Auto) 69.9 37.0-80.0 % Lymphocytes (%) (Auto) 22.4 10.0-50.0 % Monocytes (%) (Auto) 5.2 0.0-12.0 % Eosinophils (%) (Auto) 1.5 0.0-7.0 % Basophils (%) (Auto) 1.0 0.0-2.0 % Neutrophils # (Auto) 3.4 1.6-8.6 10 ^3/uL Lymphocytes # (Auto) 1.1 0.4-5.4 10 ^3/uL Monocytes # (Auto) 0.3 0-1.3 10 ^3/uL Eosinophils # (Auto) 0.1 0-0.8 10 ^3/uL Basophils # (Auto) 0.1 0-0.2 10 ^3/uL Nucleated Red Blood Cells 0.1 % Sodium Level 140 136-145 mmol/L Potassium Level 4.0 3.5-5.1 mmol/L Chloride Level 102 98-107 mmol/L Carbon Dioxide Level 30 20-31 mmol/L Anion Gap 8 5-15 Blood Urea Nitrogen 27 H 9-23 mg/dL Creatinine 1.09 H 0.550-1.02 mg/dL Glomerular Filtration Rate Calc 51 >90 mL/min BUN/Creatinine Ratio 24.8 H 10.0-20.0 Serum Glucose 106 74-106 mg/dL Calcium Level 10.0 8.7-10.4 mg/dL Troponin I High Sensitivity 10 </=34 ng/L B-Type Natriuretic Peptide 298.42 0-100 pg/mL Urine Color Light-yellow Yellow Urine Clarity Clear Clear Urine pH 6.5 5.0-9.0 Urine Specific [place] 1.015 1.001-1.035 Urine Protein Negative Negative Urine Ketones Negative Negative Urine Blood Negative Negative /uL Urine Nitrite Negative Negative Urine Bilirubin Negative Negative Urine Urobilinogen Normal Negative mg/dL Urine Leukocyte Esterase Negative Negative /uL Urine RBC None seen 0 - 4 /hpf Urine Microscopic WBC 1 0-5 /HPF Urine Squamous Epithelial Cells Few <5 /hpf Urine Bacteria Few H None Seen /hpf Urine Glucose Normal Normal mg/dL [place] [address] Ph: [phone] DIAGNOSTIC IMAGING Diagnostic Imaging Report : [id number] Signed PATIENT: SOHAN RODRIGUEZ ACCT: [id number] UNIT: [id number] : 1940 LOC: ER ROOM / BED: / AGE / SEX: 84 / F ADM STATUS: REG ER SERVICE 1 ORDERING PHYSICIAN: CARMEN BANEGAS MD PROCEDURE(s): HWOCT - HEAD WITHOUT CONTRAST REASON: fall ORDER NUMBER(s): [id number], ACCESSION NUMBER(s): [id number] EXAM: CT HEAD WITHOUT CONTRAST INDICATION: Fall TECHNIQUE: CT of the head without intravenous contrast. Coronal and sagittal reformatted images are submitted. Radiation Dose : 1. Head: CT Dose: CTDI volume is 65.7 mGy. Dose-length product is 1051.6 mGy*cm The dose indicators for CT are the volume Computed Tomography (CT) Dose Index (CTDIvol) and the Dose Length Product (DLP), and are measured in units of mGy and mGy-cm, respectively. These indicators are not patient dose, but values generated from the CT scanner acquisition factors. The report includes radiation exposure data for exposures received during this examination. All CT scans at this medical facility are performed using dose modulation techniques as appropriate to a performed exam including the following: Automated exposure control was utilized; adjustment of the MA and/or KV according to patient size; and use of iterative reconstruction technique. COMPARISON: CT HEAD WITHOUT CONTRAST on DOS: 12/19/24 FINDINGS: There is no evidence of acute intracranial hemorrhage, extra-axial collection, mass effect, midline shift, herniation or hydrocephalus. The ventricles, sulci and cisterns are age appropriate. The garcia-white differentiation is intact. The visualized paranasal sinuses and mastoid air cells are clear. No depressed calvarial fracture. The surrounding soft tissues are unremarkable. IMPRESSION: 1. No acute intracranial abnormality. ATED BY: JAYE ELLIOTT MD DICTATED DATE/TIME: 04/17/25 1013 SIGNED BY: JAYE ELLIOTT MD SIGNED DATE/TIME: 04/17/25 1013 CC: Patient alert. Vitals stable. No sign of distress. Answering questions. Status post fall landing on her head. Sitting position. CT of the head reviewed does not show any acute changes. She does have a bruise on her head. Mild swelling of extremities. BNP elevated. CHF. Kidney function elevated. EKG reviewed does not show any acute changes. Explained to the patient that she will be admitted. Continue monitoring. Time of 1ST Reevaluation: 09:45 Reevaluation 1ST: Improved Patient Education/Counseling: Diagnosis, Treatment, Prognosis Family Education/Counseling: No Family Present Departure 1 Departure Time of Disposition: 17:12 Impression: Primary Impression: CHF (congestive heart failure) Qualified Codes: I50.43 - Acute on chronic combined systolic (congestive) and diastolic (congestive) heart failure Additional Impressions: Head injury Qualified Codes: S09.90XA - Unspecified injury of head, initial encounter ATN (acute tubular necrosis) Disposition: ADMITTED INPATIENT Admit to: Med Surg Condition: Guarded Critical Care Note Critical Care Time?: No Stability Stability form required: No Heart Score Heart Score: Heart Score Response (Comments) Value History Slightly Suspicious 0 EKG Normal 0 Age >65 2 Risk Factors >3 or Hx ASHD 2 Troponin Normal limit 0 Total 4 I personally scribed for CARMEN BANEGAS MD ([email or web address]) on 04/17/25 at 09:38. Electronically submitted by Geovanna Burger ([email or web address]). I personally scribed for CARMEN BANEGAS MD ([email or web address]) on 04/17/25 at 10:30. Electronically submitted by Geovanna Burger ([email or web address]). CARMEN BANEGAS MD April 17, 2025 09:38
[2025-04-17 09:41] LABS: Eosinophils # (auto) 0.1 10 ^3/uL (0-0.8); Lymphocytes # (auto) 1.1 10 ^3/uL (0.4-5.4); Monocytes # (auto) 0.3 10 ^3/uL (0-1.3)
[2025-04-17 09:43] LABS: Basophils # (auto) 0.1 10 ^3/uL (0-0.2); Eosinophils % (auto) 1.5 % (0.0-7.0); Hematocrit 40.3 % (36.0-46.0); Hemoglobin 13.4 g/dL (12.2-16.2); Lymphocytes % (auto) 22.4 % (10.0-50.0); Mean Corpuscular Hemoglobin 34.7 pg (28.0-32.0); Mean Corpuscular Hgb Conc. 33.2 g/dL (32.0-36.0); Mean Corpuscular Volume 104.6 fL (80.0-100.0); Monocytes % (auto) 5.2 % (0.0-12.0); Neutrophils # (auto) 3.4 10 ^3/uL (1.6-8.6); Neutrophils % (auto) 69.9 % (37.0-80.0); Nucleated Red Blood Cells % 0.1 %; Platelet Count (auto) 174 10^3/uL (140-450); Red Blood Cells 3.85 10^6/uL (4.0-5.20); Red Cell Distribution Width 12.5 % (11.8-14.3); White Blood Cell 4.9 10^3/uL (4.4-10.8)
[2025-04-17 09:50] LABS: Chloride 102 mmol/L (98-107); Sodium 140 mmol/L (136-145)
[2025-04-17 09:51] LABS: Anion Gap 8 (5-15); Carbon Dioxide 30 mmol/L (20-31)
[2025-04-17 09:56] LABS: Glucose 106 mg/dL (74-106)
[2025-04-17 09:57] LABS: BUN/Creatinine Ratio 24.8 (10.0-20.0)
[2025-04-17 10:07] LABS: Blood Urea Nitrogen 27 mg/dL (9-23)
[2025-04-17 10:10] LABS: Urine Bacteria FEW /hpf (None Seen); Urine Blood Negative /uL (Negative); Urine Clarity Clear (Clear); Urine Color Light-Yellow (Yellow); Urine Protein, UAD Negative (Negative); Urine Specific Gravity 1.015 (1.001-1.035); Urine Squamous Epithelial Cell FEW /hpf (<5); Urine Urobilinogen Normal (Negative); Urine WBC 1 /HPF (0-5); Urine pH 6.5 (5.0-9.0)
--- NOTE | 2025-04-17 10:15 | DVH ---
EXAM: CT HEAD WITHOUT CONTRAST INDICATION: Fall TECHNIQUE: CT of the head without intravenous contrast. Coronal and sagittal reformatted images are s ubmitted. Radiation Dose : 1. Head: CT Dose: CTDI volume is 65.7 mGy. Dose-length product is 1051.6 mGy*cm The dose indicators for CT are the volume Computed Tomography (CT) Dose Index (CTDIvol) and the Dose Length Product (DLP), and are measured in units of mGy and mGy-cm, respectively. These indicators are not patient dose, but values generated from the CT scanner acquisition factors. The report includes radiation exposure data for exposures received during this examination. All CT scans at this medical facility are performed using dose modulation techniques as appropriate to a performed exam including the following: Automated exposure control was utilized; adjustment of the MA and/or KV according to patient size; and use of iterative reconstruction technique. COMPARISON: CT HEAD WITHOUT CONTRAST on DOS: 12/19/24 FINDINGS: There is no evidence of acute intracranial hemorrhage, extra-axial collection, mass effect, midline s hift, herniation or hydrocephalus. The ventricles, sulci and cisterns are age appropriate. The garcia-white differentiation is intact. The visualized paranasal sinuses and mastoid air cells are clear. No depressed calvarial fracture. The surrounding soft tissues are unremarkable. IMPRESSION: 1. No acute intracranial abnormality.
--- NOTE | 2025-04-17 10:33 | DVH ---
XY CHEST PORTABLE, HISTORY: sob COMPARISON: XY CHEST PORTABLE on DOS: 12/19/24 XY CHEST PORTABLE on DOS: 12/19/24 TECHNICAL DATA: 1 view of the chest was obtained. FINDINGS: Lines and tubes: A cardiac pacer is seen. Cardiomediastinal silhouette: normal Pulmonary vasculature: normal Lung expansion: normal Lung airspace: normal Lung interstitium: normal Pleura: normal Pneumothorax: no Bones: Unremarkable Other: no IMPRESSION: No acute intrathoracic abnormality.
[2025-04-17] MEDS ORDERED: ONDANSETRON HCL 4 MG/2 ML VIAL IV PRN ×2 (12:15→12:30)
[2025-04-17] MEDS ORDERED: ACETAMINOPHEN 325 MG TAB PO PRN (12:15)
[2025-04-17] MEDS ORDERED: DOCUSATE SOD 100 MG CAP PO PRN (12:15)
[2025-04-17] MEDS ORDERED: HYDROcodone-ACET 5/325MG TAB PO PRN (12:15)
--- NOTE | 2025-04-17 12:36 | DVHHP2 ---
History of Present Illness Reason for Visit: Headache History of Present Illness Sammi Pantoja is an 84-year-old female with past medical history of anxiety, CHF, hypertension, hyperlipidemia, and hypothyroidism, who came in for a headache, after hitting her head last night. Patient states that last night she was trying to kill a spider, when she bent down and hit her head on the counter next to the sink. She states she did not go all the way to the ground. She came to the hospital today due to having a continued headache and lightheadedness. Cardiovascular: CHF, HTN, hyperipidemia Psych: Anxiety Endocrine: Hypothyroidism Past Surgical History: Hysterectomy, Other (Pacemaker), Tonsillectomy Smoke: No ALCOHOL: none Drugs: None Lives: Alone Domestic Violence: Neg Review of Systems Constitutional: Yes: Other (headache, lightheadedness); No: Fever, Chills, Sweats, Weakness, Malaise Eyes: No: Pain, Vision change, Conjunctivae inflammation, Eyelid inflammation, Other, Redness ENT: No: Ear pain, Ear discharge, Nose pain, Nose discharge, Nose congestion, Mouth pain, Mouth swelling, Throat pain, Throat swelling, Other Respiratory: No: Cough, Dry, Shortness of breath, SOB with excertion, Wheezing, Hemoptysis, Pleuritic Pain, Sputum, Wheezing, Other Cardiovascular: No: Chest Pain, Palpitations, Orthopnea, Paroxysmal Noc. Dyspnea, Edema, Lt Headedness, Other Gastrointestinal: No: Nausea, Vomiting, Abdominal Pain, Diarrhea, Constipation, Melena, Hematochezia, Other Genitourinary: No Dysuria, No Frequency, No Incontinence, No Hematuria, No Retention, No Other Musculoskeletal: No: other, neck pain, shoulder pain, arm pain, back pain, hand pain, leg pain, foot pain Skin: No: Rash, Lesions, Jaundice, Bruising, Other Neurological: No: Weakness, Numbness, Incoordination, Change in speech, Confusion, Seizures, Other Allergies: Coded Allergies: Ciprofloxacin (Verified Allergy, Unknown, 04/17/25) Ibuprofen (Verified Allergy, Unknown, 04/17/25) Morphine (Unverified Allergy, Unknown, 12/19/24) Penicillins (Unverified Allergy, Unknown, 12/19/24) Medications Current Medications Medications Dose Ordered Sig/Chris Route Start Time Stop Time Status Last Admin Dose Admin Sodium Chloride 10 ml Q8HR IV 04/17/25 14:00 UNV Acetaminophen/ Hydrocodone Bitart 1 tab Q4HP PRN PO 04/17/25 12:15 UNV Ondansetron HCl 4 mg Q4HP PRN IV 04/17/25 12:15 UNV Docusate Sodium 100 mg BIDPRN PRN PO 04/17/25 12:15 UNV Acetaminophen 650 mg Q6HP PRN PO 04/17/25 12:15 UNV Alprazolam 0.25 mg BIDPRN PO 04/17/25 22:00 UNV Clotrimazole 1 applic DAILY TOP 04/18/25 10:00 UNV Furosemide 40 mg BID PO 04/17/25 22:00 UNV Levothyroxine Sodium 75 mcg DAILY PO 04/18/25 10:00 UNV Oxybutynin Chloride 10 mg BID PO 04/17/25 22:00 UNV Spironolactone 25 mg DAILY PO 04/18/25 10:00 UNV Patient Own Medication 1 tab DAILY PO 04/18/25 10:00 UNV Patient Own Medication 1 tab DAILY PO 04/18/25 10:00 UNV Patient Own Medication 1 tab DAILY PO 04/18/25 10:00 UNV Exam Vital Signs Vital Signs Date Time Temp Pulse Resp B/P (MAP) Pulse Ox O2 Delivery O2 Flow Rate FiO2 04/17/25 10:16 62 18 98 Room Air 04/17/25 10:16 97.9 121/56 (77) 97.9 General Appearance: Alert, Oriented X3, Cooperative, mild distress HEENT: Atraumatic, PERRLA Respiratory: Clear to auscultation, Normal air movement Cardiovascular: Regular rate, Normal S1, Normal S2, No murmurs Abdominal: Normal bowel sounds, Soft, No tenderness, No hepatospenomegaly Extremities: No clubbing, No cyanosis, Normal pulses, No tenderness/swelling, Other (bilater pedal edema) Skin: No rashes, No breakdown, No significant lesion Neuro: Normal gait, Normal speech, Strength at 5/5 X4 ext, Normal tone Psych/Mental Status: Mental status NL, Mood NL Labs/Xrays Labs Test 04/17/25 09:30 04/17/25 09:23 Range/Units White Blood Count 4.9 4.4-10.8 10^3/uL Red Blood Count 3.85 L 4.0-5.20 10^6/uL Hemoglobin 13.4 12.2-16.2 g/dL Hematocrit 40.3 36.0-46.0 % Mean Corpuscular Volume 104.6 H 80.0-100.0 fL Mean Corpuscular Hemoglobin 34.7 H 28.0-32.0 pg Mean Corpuscular Hemoglobin Concent 33.2 32.0-36.0 g/dL Red Cell Distribution Width 12.5 11.8-14.3 % Platelet Count 174 140-450 10^3/uL Mean Platelet Volume 9.2 6.9-10.8 fL Neutrophils (%) (Auto) 69.9 37.0-80.0 % Lymphocytes (%) (Auto) 22.4 10.0-50.0 % Monocytes (%) (Auto) 5.2 0.0-12.0 % Eosinophils (%) (Auto) 1.5 0.0-7.0 % Basophils (%) (Auto) 1.0 0.0-2.0 % Neutrophils # (Auto) 3.4 1.6-8.6 10 ^3/uL Lymphocytes # (Auto) 1.1 0.4-5.4 10 ^3/uL Monocytes # (Auto) 0.3 0-1.3 10 ^3/uL Eosinophils # (Auto) 0.1 0-0.8 10 ^3/uL Basophils # (Auto) 0.1 0-0.2 10 ^3/uL Nucleated Red Blood Cells 0.1 % Sodium Level 140 136-145 mmol/L Potassium Level 4.0 3.5-5.1 mmol/L Chloride Level 102 98-107 mmol/L Carbon Dioxide Level 30 20-31 mmol/L Anion Gap 8 5-15 Blood Urea Nitrogen 27 H 9-23 mg/dL Creatinine 1.09 H 0.550-1.02 mg/dL Glomerular Filtration Rate Calc 51 >90 mL/min BUN/Creatinine Ratio 24.8 H 10.0-20.0 Serum Glucose 106 74-106 mg/dL Calcium Level 10.0 8.7-10.4 mg/dL Troponin I High Sensitivity 10 </=34 ng/L B-Type Natriuretic Peptide 298.42 0-100 pg/mL Urine Color Light-yellow Yellow Urine Clarity Clear Clear Urine pH 6.5 5.0-9.0 Urine Specific Jay 1.015 1.001-1.035 Urine Protein Negative Negative Urine Ketones Negative Negative Urine Blood Negative Negative /uL Urine Nitrite Negative Negative Urine Bilirubin Negative Negative Urine Urobilinogen Normal Negative mg/dL Urine Leukocyte Esterase Negative Negative /uL Urine RBC None seen 0 - 4 /hpf Urine Microscopic WBC 1 0-5 /HPF Urine Squamous Epithelial Cells Few <5 /hpf Urine Bacteria Few H None Seen /hpf Urine Glucose Normal Normal mg/dL EXAM: CT HEAD WITHOUT CONTRAST FINDINGS: There is no evidence of acute intracranial hemorrhage, extra-axial collection, mass effect, midline shift, herniation or hydrocephalus. The ventricles, sulci and cisterns are age appropriate. The garcia-white differentiation is intact. The visualized paranasal sinuses and mastoid air cells are clear. No depressed calvarial fracture. The surrounding soft tissues are unremarkable. IMPRESSION: 1. No acute intracranial abnormality. XY CHEST PORTABLE, FINDINGS: Lines and tubes: A cardiac pacer is seen. Cardiomediastinal silhouette: normal Pulmonary vasculature: normal Lung expansion: normal Lung airspace: normal Lung interstitium: normal Pleura: normal Pneumothorax: no Bones: Unremarkable Other: no IMPRESSION: No acute intrathoracic abnormality. Assessment/Plan Assessment/Plan Assessment: Fall with injury, CHF, Hypertension, Hypothyroidism, Anxiety, Plan: Admit to Med-Surg, Social service consult, Cardiology consult, Physical therapy evaluation, Home mediations reconciled, Plan discussed with: Patient My Orders Orders - GOGO ALMONTE Procedure Category Date Status Time Admit ADMIT 04/17/25 Transmitted 12:12 Code Status CODE 04/17/25 Transmitted 12:12 2 Gm Sodium Diet DIET 04/17/25 Transmitted Lunch Sodium Chloride Lock PHA 04/17/25 Logged (Saline Lock Ns) 14:00 Hydrocodone-Acet PHA 04/17/25 Logged 5/325mg Tab ([place] 12:15 Ondansetron Hcl PHA 04/17/25 Logged (Zofran) 12:15 Docusate Sodium PHA 04/17/25 Logged Capsule (Colace 12:15 Fall Risk Precautions ALANNAH 04/17/[address] 12:12 Complete Blood Count LAB 04/18/25 Verified 04:00 Comprehensive LAB 04/18/25 Verified Metabolic Panel 04:00 Condition: Serious ALANNAH 04/17/25 In Process 12:12 Acetaminophen Tablet PHA 04/17/25 Logged (Tylenol Tablet) 12:15 Alprazolam Tablet PHA 04/17/25 Logged (Xanax Tablet) 22:00 Clotrimazole 1% PHA 04/18/25 Logged Topical Cream 10:00 Furosemide Tablet PHA 04/17/25 Logged (Lasix Tablet) 22:00 Levothyroxine Tablet PHA 04/18/25 Logged (Synthroid Tablet) 10:00 Oxybutynin Chloride [facility] 04/17/25 Logged Tablet (Ditropan Tab 22:00 Spironolactone PHA 04/18/25 Logged (Aldactone) 10:00 (Nf) Cetirizine Hcl PHA 04/18/25 Logged (Cetirizine Hydrochl 10:00 (Nf) Metoprolol PHA 04/18/25 Logged Succinate (Metoprolol 10:00 (Nf) Simvastatin PHA 04/18/25 Logged 10:00 Date of Service: April 17, 2025 Billing Provider: GOGO ALMONTE Common Visit Codes: [id number] INP/OBS CARE (MOD) GOGO ALMONTE April 17, 2025 12:36
[2025-04-17] MEDS ORDERED: SODIUM CHLOR 0.9% PF (SALINE LOCK) 10ML VIAL/SYR IV SCH (14:00)
[2025-04-17] MEDS: SODIUM CHLOR 0.9% PF (SALINE LOCK) 10ML VIAL/SYR IV SCH (14:00)
[2025-04-17 15:57] VITALS: BP 136/87; PULSE 65; RESP 18; TEMP 97.8; O2SAT 97
[2025-04-17] MEDS ORDERED: CHOL20007 PO (18:03)
[2025-04-17] MEDS ORDERED: ASPI-543 PO (18:03)
[2025-04-17 20:00] VITALS: PULSE 65; RESP 18; O2SAT 94
[2025-04-17 21:00] VITALS: BP 102/65; PULSE 65; RESP 18; TEMP 97.4; O2SAT 94
[2025-04-17] MEDS: ATORVASTATIN 20 MG TAB PO SCH (21:21)
[2025-04-17] MEDS: FUROSEMIDE 40 MG TAB PO SCH (21:22)
[2025-04-17] MEDS: ALPRAZolam 0.25 MG TAB PO SCH (21:23)
[2025-04-17] MEDS: OXYBUTYNIN CHL 5 MG TAB PO SCH (21:24)
[2025-04-17] MEDS: HYDROcodone-ACET 5/325MG TAB PO PRN (21:24)
[2025-04-17] MEDS ORDERED: FUROSEMIDE 40 MG TAB PO SCH (22:00)
[2025-04-17] MEDS ORDERED: ALPRAZolam 0.25 MG TAB PO SCH (22:00)
[2025-04-17] MEDS ORDERED: OXYBUTYNIN CHL 5 MG TAB PO SCH (22:00)
[2025-04-18] VITALS (8 sets, daily range): BP systolic 107–144; BP diastolic 60–70; PULSE 64–72; RESP 12–20; TEMP 96.8–98.7; O2SAT 91–98
[2025-04-18] MEDS: DOCUSATE SOD 100 MG CAP PO PRN (00:23)
[2025-04-18 06:16] LABS: Basophils # (auto) 0 10 ^3/uL (0-0.2); Eosinophils # (auto) 0.1 10 ^3/uL (0-0.8); Hemoglobin 13.8 g/dL (12.2-16.2); Lymphocytes # (auto) 2.1 10 ^3/uL (0.4-5.4); Neutrophils # (auto) 3.1 10 ^3/uL (1.6-8.6)
[2025-04-18 06:17] LABS: Basophils % (auto) 0.7 % (0.0-2.0); Hematocrit 40.6 % (36.0-46.0); Lymphocytes % (auto) 37.3 % (10.0-50.0); Mean Corpuscular Hemoglobin 35.4 pg (28.0-32.0); Mean Corpuscular Hgb Conc. 34.1 g/dL (32.0-36.0); Monocytes # (auto) 0.3 10 ^3/uL (0-1.3); Monocytes % (auto) 5.9 % (0.0-12.0); Neutrophils % (auto) 54.1 % (37.0-80.0); Platelet Count (auto) 186 10^3/uL (140-450); Red Cell Distribution Width 12.8 % (11.8-14.3); White Blood Cell 5.7 10^3/uL (4.4-10.8)
[2025-04-18 06:33] LABS: Alanine Aminotransferase 23 U/L (7-40); Albumin 4.6 g/dL (3.2-4.8); Alkaline Phosphatase 85 U/L (46-116); Anion Gap 8 (5-15); Aspartate Aminotransferase 20 U/L (13-40); Blood Urea Nitrogen 20 mg/dL (9-23); Calcium 10.1 mg/dL (8.7-10.4); Carbon Dioxide 28 mmol/L (20-31); Chloride 105 mmol/L (98-107); Glucose 89 mg/dL (74-106); Potassium 4.2 mmol/L (3.5-5.1); Sodium 141 mmol/L (136-145)
--- NOTE | 2025-04-18 08:56 | DVHPN2 ---
Progress Note - Dictate Date Seen: April 18, 2025 Medical Necessity Reason Pt with a Central, PICC or Fol: No Subjective PT WITH HEAD PAIN FOLLOWING TRAUMA TO HER HEAD AFTER HITTING A TABLE TOP An 84-year-old with dilated cardiomyopathy, s/p Bi-V AICD implantation. The patient initially had an AICD implanted in 2009 and since then, the patient had a replacement approximately 6 years ago and now has another replacement in 2023. PERTINENT MEDICAL HISTORY: Significant for hypertension, hyperlipidemia. History of COPD. Remote history of tobacco use, discontinued smoking some 30 years ago. History of heart failure, systolic heart failure with left ventricular ejection fraction less than 30%. CURRENT MEDICATIONS: Include aspirin, Lasix, metoprolol, spironolactone, and simvastatin. She is also on home O2 therapy because of chronic lung disease as well. She denies any history of diabetes. No history of renal insufficiency. Denies any history of CVA. Denies any history of peripheral vascular disease, however. No history of myocardial infarction, even though she had angioplasty of the coronary anatomy. REVIEW OF SYSTEMS: She denies any fever, chills, melena, hematochezia, hematemesis or hemoptysis. No bleeding diathesis. No history of any GI symptomatology, inflammatory bowel disease or irritable bowel syndrome, or diarrhea or constipation. No liver disease. No history of any neurological disorders, such as seizures. Denies any swallowing difficulties. Denies any neurological symptoms as well. vital signs Vital Sign Date Time Temp Pulse Resp B/P (MAP) Pulse Ox O2 Delivery O2 Flow Rate FiO2 04/18/25 05:00 98.7 65 20 123/63 (83) 97 98.7 04/17/25 20:00 Room Air* 0 21 Total Intake and Output 04/17/25 04/17/25 04/18/25 15:00 23:00 07:00 Intake Total 240 ml 500 ml Output Total 150 ml Balance -150 ml 240 ml 500 ml medications Current Medications Medications Dose Ordered Sig/Chris Route Start Time Stop Time Status Last Admin Dose Admin Sodium Chloride 10 ml Q8HR IV 04/17/25 14:00 04/18/25 05:28 10 ML Ondansetron HCl 4 mg Q4HP PRN IV 04/17/25 12:30 Acetaminophen/ Hydrocodone Bitart 1 tab Q4HP PRN PO 04/17/25 12:30 04/17/25 21:24 1 TAB Docusate Sodium 100 mg BIDPRN PRN PO 04/17/25 12:30 04/18/25 00:23 100 MG Acetaminophen 650 mg Q6HP PRN PO 04/17/25 12:30 Alprazolam 0.25 mg BIDPRN PO 04/17/25 22:00 04/17/25 21:23 0.25 MG Clotrimazole 1 applic DAILY TOP 04/18/25 10:00 Furosemide 40 mg BID PO 04/17/25 22:00 04/17/25 21:22 40 MG Levothyroxine Sodium 75 mcg DAILY PO 04/18/25 10:00 Oxybutynin Chloride 10 mg BID PO 04/17/25 22:00 04/17/25 21:24 10 MG Spironolactone 25 mg DAILY PO 04/18/25 10:00 Patient Own Medication 1 tab QPM PO 04/18/25 18:00 Metoprolol Succinate 25 mg DAILY PO 04/18/25 10:00 Atorvastatin Calcium 10 mg HS PO 04/17/25 22:00 04/17/25 21:21 10 MG objective HEENT: Pupils are reactive. Funduscopic exam shows no AV nicking, no exudates, no papilledema. Sclerae are anicteric. Extraocular muscles are intact. Tympanic membranes are moist. Oral mucosa moist. Posterior pharynx without any exudates. NECK: No JVD appreciated. Carotid pulses are 2+ symmetrical. No cervical adenopathy. No supraclavicular adenopathy. PULMONARY: Clear to auscultation. Tympanic to percussion. No rhonchi, no wheezes, no egophony. CARDIOVASCULAR: Regular rate. PMI is diffuse; however, there is a soft 1/6 systolic murmur along the left sternal border. ABDOMEN: Obese. Unable to appreciate an organomegaly. Stool guaiac is negative. Liver approximately 5 cm. No epigastric tenderness, no suprapubic tenderness, no CVA tenderness. NEUROLOGIC: The patient is intact. EXTREMITIES: Distal pulses are present. CT OF HEAD NEGATIVE laboratory and microbiology Laboratory Tests 04/18/25 05:04 Test 04/18/25 05:04 Range/Units Serum Glucose 89 74-106 mg/dL Problem List TRAUMA TO HEAD WITH SOFT TISSUE INJURY' PT WITH DILATED CM WITH ISCHEMIC COMPONENT NOW WITH DIZZINESS PT HAS A TENDENCY TO SEEK ATTENTION THIS IS HER 6tH ADMISSION IN 6 MONTHS Assessment/Plan CT OF HEAD NEGATIVE MARCH DC HOME PLEASE DC HOME Plan discussed with: Patient ANNEMARIE LUND MD April 18, 2025 08:56
[2025-04-18] MEDS: LEVOTHYROXINE SODIUM 25 MCG TAB PO SCH (09:55)
[2025-04-18] MEDS: METOPROLOL SUCCINATE XL 50 MG TAB PO SCH (09:56)
[2025-04-18] MEDS: SPIRONOLACTONE 25 MG TAB PO SCH (09:57)
[2025-04-18] MEDS ORDERED: SPIRONOLACTONE 25 MG TAB PO SCH (10:00)
[2025-04-18] MEDS ORDERED: LEVOTHYROXINE SODIUM 25 MCG TAB PO SCH (10:00)
[2025-04-18] MEDS ORDERED: CETIRIZINE HCL PO SCH (10:00)
[2025-04-18] MEDS ORDERED: PATIENTS OWN MEDICATION (Simvastatin 1 TAB) PO SCH (10:00)
[2025-04-18] MEDS ORDERED: PATIENTS OWN MEDICATION (Metoprolol Succinate (Metoprolol Succinate Er) 1 TAB) PO SCH (10:00)
[2025-04-18] MEDS ORDERED: CLOTRIMAZOLE 1 % CREAM 15GM TOP SCH (10:00)
--- NOTE | 2025-04-18 10:41 | DVHPN2 ---
Progress Note Date Seen: April 18, 2025 Medical Necessity Reason Pt with a Central, PICC or Fol: No Subjective Patient reports: No new complaints Review of Systems: HEENT:Normal, CVS:Normal, RESPIRATORY:Normal, GI:Normal, :Normal, MSK:Normal, NEURO:Normal Objective vital signs Vital Sign Date Time Temp Pulse Resp B/P (MAP) Pulse Ox O2 Delivery O2 Flow Rate FiO2 04/18/25 09:57 109/61 04/18/25 09:56 65 04/18/25 08:30 96.8 12 96 96.8 04/17/25 20:00 Room Air* 0 21 Total Intake and Output 04/17/25 04/17/25 04/18/25 15:00 23:00 07:00 Intake Total 240 ml 500 ml Output Total 150 ml Balance -150 ml 240 ml 500 ml medications Current Medications Medications Dose Ordered Sig/Chris Route Start Time Stop Time Status Last Admin Dose Admin Sodium Chloride 10 ml Q8HR IV 04/17/25 14:00 04/18/25 05:28 10 ML Ondansetron HCl 4 mg Q4HP PRN IV 04/17/25 12:30 Acetaminophen/ Hydrocodone Bitart 1 tab Q4HP PRN PO 04/17/25 12:30 04/17/25 21:24 1 TAB Docusate Sodium 100 mg BIDPRN PRN PO 04/17/25 12:30 04/18/25 00:23 100 MG Acetaminophen 650 mg Q6HP PRN PO 04/17/25 12:30 Alprazolam 0.25 mg BIDPRN PO 04/17/25 22:00 04/18/25 09:54 0.25 MG Clotrimazole 1 applic DAILY TOP 04/18/25 10:00 Furosemide 40 mg BID PO 04/17/25 22:00 04/18/25 09:57 40 MG Levothyroxine Sodium 75 mcg DAILY PO 04/18/25 10:00 04/18/25 09:55 75 MCG Oxybutynin Chloride 10 mg BID PO 04/17/25 22:00 04/18/25 09:57 10 MG Spironolactone 25 mg DAILY PO 04/18/25 10:00 04/18/25 09:57 25 MG Patient Own Medication 1 tab QPM PO 04/18/25 18:00 Metoprolol Succinate 25 mg DAILY PO 04/18/25 10:00 04/18/25 09:56 25 MG Atorvastatin Calcium 10 mg HS PO 04/17/25 22:00 04/17/25 21:21 10 MG Examination: GENERAL:Normal, HEENT:Normal, NECK:Normal, LUNGS:Normal, CVS:Normal, ABDOMEN:Normal, MSK:Normal, SKIN:Normal, NEURO:Normal, :Normal laboratory and microbiology Laboratory Tests 04/18/25 05:04 Test 04/18/25 05:04 Range/Units Serum Glucose 89 74-106 mg/dL Problem List/Assessment/Plan Problem List/Assessment/Plan #1 ? fall ?syncopy with trauma to head: pt eval #2 chronic systolic heart failure s/p aicd #3 hypothyroidism #4 elevated mcv: check tsh, b 12 #5 obesity #6 copd advance care planning - full code- time spent 19 mins Plan discussed with: Patient Date of Service: April 18, 2025 Billing Provider: THAD LEDEZMA MD Common Visit Codes: [id number] INP/OBS CARE(HIGH) Secondary Visit Codes: [id number] CARE PLAN 30 MINUTES THAD LEDEZMA MD April 18, 2025 10:41
[2025-04-18] MEDS: PANTOPRAZOLE 40 MG TAB PO ONE (12:33)
[2025-04-18] MEDS: ACETAMINOPHEN 325 MG TAB PO PRN (12:34)
[2025-04-18] MEDS: CLOTRIMAZOLE 1 % CREAM 15GM TOP SCH (12:35)
[2025-04-18] MEDS ORDERED: CETIRIZINE HCL 10 MG PO SCH (18:00)
[2025-04-19 05:00] VITALS: BP 118/75; PULSE 65; RESP 18; TEMP 97.6; O2SAT 98
[2025-04-19] MEDS: PANTOPRAZOLE 40 MG TAB PO SCH (05:19)
[2025-04-19] MEDS: FUROSEMIDE 40 MG TAB PO SCH (05:21)
[2025-04-19 06:29] LABS: Anion Gap 7 (5-15); Carbon Dioxide 30 mmol/L (20-31); Chloride 103 mmol/L (98-107); Sodium 140 mmol/L (136-145)
[2025-04-19 06:30] LABS: Calcium 9.1 mg/dL (8.7-10.4)
[2025-04-19 06:35] LABS: BUN/Creatinine Ratio 19.6 (10.0-20.0); Blood Urea Nitrogen 21 mg/dL (9-23); Glucose 88 mg/dL (74-106)
[2025-04-19 06:36] LABS: Magnesium 2.5 mg/dL (1.6-2.6)
[2025-04-19 07:40] VITALS: O2SAT 94
[2025-04-19 09:00] VITALS: BP 115/71; PULSE 57; RESP 16; TEMP 97.8; O2SAT 94
--- NOTE | 2025-04-19 10:50 | DVHDS2 ---
Discharge Summary Date of Admission April 17, 2025 at 12:12 Date of Discharge: April 19, 2025 Labs/Diagnostic Data: Laboratory Results Test 04/19/25 05:45 04/18/25 05:04 04/17/25 09:30 04/17/25 09:23 Sodium Level 140 mmol/L (136-145) Potassium Level 4.0 mmol/L (3.5-5.1) Chloride Level 103 mmol/L (98-107) Carbon Dioxide Level 30 mmol/L (20-31) Anion Gap 7 (5-15) Blood Urea Nitrogen 21 mg/dL (9-23) Creatinine 1.07 mg/dL (0.550-1.02) Glomerular Filtration Rate Calc 52 mL/min (>90) BUN/Creatinine Ratio 19.6 (10.0-20.0) Serum Glucose 88 mg/dL (74-106) Calcium Level 9.1 mg/dL (8.7-10.4) Magnesium Level 2.5 mg/dL (1.6-2.6) Vitamin B12 Level 277 pg/mL (211-911) Thyroid Stimulating Hormone (TSH) 1.04 uIU/mL (0.55-4.78) White Blood Count 5.7 10^3/uL (4.4-10.8) Red Blood Count 3.90 10^6/uL (4.0-5.20) Hemoglobin 13.8 g/dL (12.2-16.2) Hematocrit 40.6 % (36.0-46.0) Mean Corpuscular Volume 104.0 fL (80.0-100.0) Mean Corpuscular Hemoglobin 35.4 pg (28.0-32.0) Mean Corpuscular Hemoglobin Concent 34.1 g/dL (32.0-36.0) Red Cell Distribution Width 12.8 % (11.8-14.3) Platelet Count 186 10^3/uL (140-450) Mean Platelet Volume 9.7 fL (6.9-10.8) Neutrophils (%) (Auto) 54.1 % (37.0-80.0) Lymphocytes (%) (Auto) 37.3 % (10.0-50.0) Monocytes (%) (Auto) 5.9 % (0.0-12.0) Eosinophils (%) (Auto) 2.0 % (0.0-7.0) Basophils (%) (Auto) 0.7 % (0.0-2.0) Neutrophils # (Auto) 3.1 10 ^3/uL (1.6-8.6) Lymphocytes # (Auto) 2.1 10 ^3/uL (0.4-5.4) Monocytes # (Auto) 0.3 10 ^3/uL (0-1.3) Eosinophils # (Auto) 0.1 10 ^3/uL (0-0.8) Basophils # (Auto) 0 10 ^3/uL (0-0.2) Nucleated Red Blood Cells 0.0 % Total Bilirubin 2.0 mg/dL (0.2-1.0) Aspartate Amino Transferase (AST) 20 U/L (13-40) Alanine Aminotransferase (ALT) 23 U/L (7-40) Alkaline Phosphatase 85 U/L (46-116) Total Protein 7.0 g/dL (5.7-8.2) Albumin 4.6 g/dL (3.2-4.8) Troponin I High Sensitivity 10 ng/L (</=34) B-Type Natriuretic Peptide 298.42 pg/mL (0-100) Urine Color Light-yellow (Yellow) Urine Clarity Clear (Clear) Urine pH 6.5 (5.0-9.0) Urine Specific [place] 1.015 (1.001-1.035) Urine Protein Negative (Negative) Urine Ketones Negative (Negative) Urine Blood Negative /uL (Negative) Urine Nitrite Negative (Negative) Urine Bilirubin Negative (Negative) Urine Urobilinogen Normal mg/dL (Negative) Urine Leukocyte Esterase Negative /uL (Negative) Urine RBC None seen /hpf (0 - 4) Urine Microscopic WBC 1 /HPF (0-5) Urine Squamous Epithelial Cells Few /hpf (<5) Urine Bacteria Few /hpf (None Seen) Urine Glucose Normal mg/dL (Normal) Other Laboratory Tests 04/19/25 05:45 04/18/25 05:04 Brief Hx & Hospital Course: see dictated note Condition at Discharge: Fair Final Diagnosis/Problems List fall Discharge Disposition: Home Discharge Instruct/Medications Diet: Cardiac 2g Na,low cholest Activity: No Restrictions, As Tolerated Follow Up/Referral: fu with dr Maya in 1 wk Medications: resume home meds script to pharmacy Discharge Statement: "Patient was advised to return to the ER or call 911 if any headaches, dizziness, shortness of breath, chest pain, abdominal pain, bleeding, fevers, or worsening of medical condition. Patient was counseled about treatment plan, medications, possible side effects, patientverbalized understanding. All questions were answered to the best of my ability. This discharge took greater then 30 minutes in planning, reviewing documentation, counseling the patient, and discussing with other team members." ASSESSMENT ASSESSMENT Assessment fall Date of Service: April 19, 2025 Billing Provider: THAD LEDEZMA MD Common Visit Codes: 62569-SNT/OBS DISCH DAY >30min THAD LEDEZMA MD April 19, 2025 10:50
[2025-04-19] MEDS ORDERED: CYAN500T25 PO (10:51)
--- NOTE | 2025-04-19 11:13 | DVHDS ---
DATE OF DISCHARGE: 04/19/2025 HISTORY OF PRESENT ILLNESS: The patient is an 84-year-old lady who was admitted with history of fall and trauma to the head. The patient has history of congestive heart failure, hypertension, hyperlipidemia, hypothyroidism, and anxiety. HOSPITAL COURSE: The patient had a CT of the head that showed no acute abnormality. The patient had a chest x-ray that was negative. She was seen in Cardiology consult by Dr. Maya. Her B12 level was low at 277. The patient is currently doing well and will be discharged home to resume her home medications as well as to be on vitamin B12 at 500 mcg daily. She will follow up with Dr. Maya in 1 week. FINAL DIAGNOSES: * Likely syncope due to autonomic imbalance. * Chronic systolic heart failure status post AICD. * Vitamin B12 deficiency. * Hypothyroidism. * Obesity. * COPD. Time spent in discharge planning and review of plan with the patient and nursing was 38 minutes. MD KUSHAL Pitt/SANDRA TID: [id number] RECEIPT: [id number]
[2025-04-19] MEDS: CYANOCOBALAMIN (B-12) 1000 MCG/1 ML VIAL IM ONE (11:48)
--- NOTE | 2025-04-19 12:34 | DVHPN2 ---
Progress Note - Dictate Date Seen: April 19, 2025 Medical Necessity Reason Pt with a Central, PICC or Fol: No Subjective PT WITH HEAD PAIN FOLLOWING TRAUMA TO HER HEAD AFTER HITTING A TABLE TOP An 84-year-old with dilated cardiomyopathy, s/p Bi-V AICD implantation. The patient initially had an AICD implanted in 2009 and since then, the patient had a replacement approximately 6 years ago and now has another replacement in 2023. PERTINENT MEDICAL HISTORY: Significant for hypertension, hyperlipidemia. History of COPD. Remote history of tobacco use, discontinued smoking some 30 years ago. History of heart failure, systolic heart failure with left ventricular ejection fraction less than 30%. CURRENT MEDICATIONS: Include aspirin, Lasix, metoprolol, spironolactone, and simvastatin. She is also on home O2 therapy because of chronic lung disease as well. She denies any history of diabetes. No history of renal insufficiency. Denies any history of CVA. Denies any history of peripheral vascular disease, however. No history of myocardial infarction, even though she had angioplasty of the coronary anatomy. REVIEW OF SYSTEMS: She denies any fever, chills, melena, hematochezia, hematemesis or hemoptysis. No bleeding diathesis. No history of any GI symptomatology, inflammatory bowel disease or irritable bowel syndrome, or diarrhea or constipation. No liver disease. No history of any neurological disorders, such as seizures. Denies any swallowing difficulties. Denies any neurological symptoms as well. vital signs Vital Sign Date Time Temp Pulse Resp B/P (MAP) Pulse Ox O2 Delivery O2 Flow Rate FiO2 04/19/25 09:30 57 115/71 04/19/25 09:00 97.8 16 94 97.8 04/19/25 07:40 Room Air* 0 21 Total Intake and Output 04/18/25 04/18/25 04/19/25 15:00 23:00 07:00 Intake Total 240 ml 230 ml Balance 240 ml 230 ml medications Current Medications Medications Dose Ordered Sig/Chris Route Start Time Stop Time Status Last Admin Dose Admin Sodium Chloride 10 ml Q8HR IV 04/17/25 14:00 04/19/25 05:21 10 ML Ondansetron HCl 4 mg Q4HP PRN IV 04/17/25 12:30 Acetaminophen/ Hydrocodone Bitart 1 tab Q4HP PRN PO 04/17/25 12:30 04/17/25 21:24 1 TAB Docusate Sodium 100 mg BIDPRN PRN PO 04/17/25 12:30 04/18/25 00:23 100 MG Acetaminophen 650 mg Q6HP PRN PO 04/17/25 12:30 04/19/25 00:29 650 MG Alprazolam 0.25 mg BIDPRN PO 04/17/25 22:00 04/19/25 09:29 0.25 MG Clotrimazole 1 applic DAILY TOP 04/18/25 10:00 04/19/25 09:31 1 APPLIC Levothyroxine Sodium 75 mcg DAILY PO 04/18/25 10:00 04/19/25 09:27 75 MCG Oxybutynin Chloride 10 mg BID PO 04/17/25 22:00 04/19/25 09:29 10 MG Spironolactone 25 mg DAILY PO 04/18/25 10:00 04/19/25 09:29 25 MG Metoprolol Succinate 25 mg DAILY PO 04/18/25 10:00 04/19/25 09:30 25 MG Atorvastatin Calcium 10 mg HS PO 04/17/25 22:00 04/18/25 21:37 10 MG Furosemide 40 mg QAM PO 04/19/25 07:00 04/19/25 05:21 40 MG Pantoprazole Sodium 40 mg DAILY@0600 PO 04/19/25 06:00 04/19/25 05:19 40 MG objective HEENT: Pupils are reactive. Funduscopic exam shows no AV nicking, no exudates, no papilledema. Sclerae are anicteric. Extraocular muscles are intact. Tympanic membranes are moist. Oral mucosa moist. Posterior pharynx without any exudates. NECK: No JVD appreciated. Carotid pulses are 2+ symmetrical. No cervical adenopathy. No supraclavicular adenopathy. PULMONARY: Clear to auscultation. Tympanic to percussion. No rhonchi, no wheezes, no egophony. CARDIOVASCULAR: Regular rate. PMI is diffuse; however, there is a soft 1/6 systolic murmur along the left sternal border. ABDOMEN: Obese. Unable to appreciate an organomegaly. Stool guaiac is negative. Liver approximately 5 cm. No epigastric tenderness, no suprapubic tenderness, no CVA tenderness. NEUROLOGIC: The patient is intact. EXTREMITIES: Distal pulses are present. CT OF HEAD NEGATIVE laboratory and microbiology Laboratory Tests 04/19/25 05:45 04/18/25 05:04 Test 04/19/25 05:45 Range/Units Serum Glucose 88 74-106 mg/dL Problem List TRAUMA TO HEAD WITH SOFT TISSUE INJURY' PT WITH DILATED CM WITH ISCHEMIC COMPONENT NOW WITH DIZZINESS PT HAS A TENDENCY TO SEEK ATTENTION THIS IS HER 6tH ADMISSION IN 6 MONTHS Assessment/Plan CT OF HEAD NEGATIVE MARCH DC HOME PLEASE DC HOME Plan discussed with: Patient ANNEMARIE LUND MD April 19, 2025 12:34
== END 2025-04-19 13:46 | disposition home health service (06) | DRG 74 ==
LOC: ER 09:06 → OVERFLOW 12:12 → ER 12:17 → EAST 16:04
PROVIDERS: ADMIT Internal Medicine; ATTEND Internal Medicine
DX: G90.89 Other disorders of autonomic nervous system (principal); I50.22 Chronic systolic (congestive) heart failure; I42.0 Dilated cardiomyopathy; I11.0 Hypertensive heart disease with heart failure; E03.9 Hypothyroidism, unspecified; F41.9 Anxiety disorder, unspecified; J44.9 Chronic obstructive pulmonary disease, unspecified; E66.9 Obesity, unspecified; E78.5 Hyperlipidemia, unspecified; E53.8 Deficiency of other specified B group vitamins; Z88.1 Allergy status to other antibiotic agents; Z88.0 Allergy status to penicillin; Z88.8 Allergy status to other drugs, medicaments and biological substances; Z79.899 Other long term (current) drug therapy; Z79.891 Long term (current) use of opiate analgesic; Z79.1 Long term (current) use of non-steroidal anti-inflammatories (NSAID); Z90.710 Acquired absence of both cervix and uterus; Z95.810 Presence of automatic (implantable) cardiac defibrillator; Z68.33 Body mass index [BMI] 33.0-33.9, adult; Z88.6 Allergy status to analgesic agent; Z79.82 Long term (current) use of aspirin; Z87.891 Personal history of nicotine dependence
CPT/HCPCS: 36415; 70450; 71045; 80048; 80053; 81001; 82607; 83735; 83880; 84443; 84484; 85025; 97110; 97116; 97163; 97530; G0378

== ENCOUNTER 2025-06-08 09:53 | Outpatient (CLI) | payer MEDICARE ==
[~2025-06-08] VITALS: Ht 152.4 cm; Wt 73.9 kg
[~2025-06-08 09:53] MED LIST changes: +ASPI-543 PO; +CHOL20007 PO; +CYAN500T25 PO; -HYDR1TAB97 PO
[2025-06-08] MEDS ORDERED: ACETAMINOPHEN 500 MG TAB or CAP PO ONE (10:26)
--- NOTE | 2025-06-27 11:54 | DVHSR ---
APPROVED REPORT Indication Hypertension/HCVD Cardiomyopathy Congestive Heart Failure Cardiomegaly Cardiac Risk Factors Hypertension: Hypercholesterolemia Surgery/Intervention AICD Procedure The above named patient was injected with 31.9 mCi of Tc99m tagged red blood cells. Gated imaging was then performed in left anterior oblique projections. Findings Calculated LV Ejection Fraction is 40%. Impression EF 40%
== END 2025-06-08 17:00 | disposition home or self-care (01) ==
LOC: Rad HDHVI 09:53
PROVIDERS: ATTEND Internal Medicine Cardiovascular Disease
DX: I11.0 Hypertensive heart disease with heart failure (principal); I50.23 Acute on chronic systolic (congestive) heart failure; E78.00 Pure hypercholesterolemia, unspecified; I42.1 Obstructive hypertrophic cardiomyopathy; Z95.810 Presence of automatic (implantable) cardiac defibrillator
CPT/HCPCS: 78472; 93017; A9505; 96374; 96375

== ENCOUNTER 2025-06-13 10:41 | Emergency (ER) | payer MEDICARE ==
[~2025-06-13] VITALS: Ht 152.4 cm; Wt 75.4 kg
[2025-06-13 10:44] VITALS: TEMP 97.9
--- NOTE | 2025-06-13 11:12 | ED.PDOC ---
HPI Comments 84 y/o F, with PMHx of CHF, HLD, HTN, and thyroid disease presents to the ED for CC of chest pain. Patient states, that she has a pace maker and it has gone off twice in the past [id number]. Patient relays, when pacemaker goes off it jolts her, causing her to have chest pain. Patient reports, to also be experiencing symptoms of headache, dizziness, and jaw pain. Patient denies shortness of breath, cough, fever, palpitations, nausea, or vomiting. No other associated symptoms, modifiers, recent injuries or sick contacts present at this time. Chief Complaint: Chest Pain Time Seen by MD: 10:50 Primary Care Provider: ANNEMARIE Reviewed Notes: Nurses Notes, Medications, Allergies Allergies: Coded Allergies: Ciprofloxacin (Verified Allergy, Unknown, 04/17/25) Ibuprofen (Verified Allergy, Unknown, 04/17/25) Morphine (Unverified Allergy, Unknown, 12/19/24) Penicillins (Unverified Allergy, Unknown, 12/19/24) Home Meds Active Scripts Cyanocobalamin (Vitamin B-12) 500 Mcg Tab, 500 MCG PO DAILY for 30 Days, #30 TAB 3 Refills Prov:THAD LEDEZMA MD 04/19/25 Reported Medications Cholecalciferol (VITAMIN D3) 2,000 Unit Tab, 1000 UNIT PO DAILY, TAB 04/17/25 Aspirin (Aspir-Low) 81 Mg Tab, 81 MG PO DAILY for 30 Days, MG 04/17/25 Furosemide (Furosemide) 40 Mg Tab, 1 TAB PO BID for 90 Days, #180 12/20/24 Zolpidem Tartrate (Zolpidem Tartrate) 10 Mg Tab, 1 TAB PO HS for 90 Days, #90 12/20/24 Spironolactone (Spironolactone) 25 Mg Tab, 1 TAB PO DAILY for 90 Days, #90 12/20/24 Semaglutide (Ozempic) 2 Mg/3 Ml Inj, 0.5 MG SC QWEEKLY for 28 Days, #3 12/20/24 Albuterol Sulfate (Albuterol Sulfate Hfa) 108 Mcg/Act Aer, 2 PUFF IN BID PRN for 50 Days, #8.5 12/20/24 Oxybutynin Chloride (Oxybutynin Chloride) 5 Mg Tab, 10 MG PO BID for 85 Days, #170 12/20/24 Alprazolam (Alprazolam) 0.25 Mg Tab, 1 TAB PO BID PRN for 30 Days, #60 12/20/24 Clotrimazole (Topical) (Clotrimazole Anti-Fungal) 1 % Cre, 1 APPLIC TOP DAILY for 30 Days, #60 12/20/24 Levothyroxine Sodium (Levothyroxine Sodium) 25 Mcg Tab, 75 MCG PO DAILY for 90 Days, #90 12/20/24 Cetirizine HCl (Cetirizine Hydrochloride) 10 Mg Tab, 1 TAB PO DAILY for 90 Days, #90 12/20/24 Metoprolol Succinate (Metoprolol Succinate Er) 25 Mg Tab, 1 TAB PO DAILY for 90 Days, #90 12/20/24 Potassium Chloride (Potassium Chloride ER) 20 Meq Tab, 1 TAB PO DAILY for 90 Days, #90 12/20/24 Simvastatin (Simvastatin) 20 Mg Tab, 1 TAB PO DAILY for 90 Days, #90 12/20/24 Information Source: Patient Mode of Arrival: Wheelchair Severity: Moderate Timing: Weeks Duration: Since onset Prehospital treatment: None Location: Substernal Radiation: No Radiation Onset: At Rest Cardiac Risk Factors: Hyperlipidemia, HTN PE Risk Factors: None History of: None Modifying Factors: Nothing Associated Signs and Symptoms: None Past Medical History PAST MEDICAL HISTORY: CHF, High Lipids, HTN, Thyroid Surgical History: Unknown [employer] History: Unknown Family History Family History: Unknown Social History Smoker: Non-Smoker Alcohol: Denies ETOH Use Drugs: Denies Drug Use Lives In: Home Constitutional: denies: chills, diaphoresis, fatigue, fever, malaise, sweats, weakness, others EENTM: denies: blurred vision, double vision, ear bleeding, ear discharge, ear drainage, ear pain, ear ringing, eye pain, eye redness, hearing loss, mouth pain, mouth swelling, nasal discharge, nose bleeding, nose congestion, nose pain, photophobia, tearing, throat pain, throat swelling, voice changes, others Respiratory: denies: cough, hemoptysis, orthopnea, SOB at rest, shortness of breath, SOB with excertion, stridor, wheezing, others Cardiovascular: reports: chest pain; denies: dizzy spells, diaphoresis, Dyspnea on exertion, edema, irregular heart beat, left arm pain, lightheadedness, palpitations, PND, syncope, others Gastrointestinal: denies: abdomen distended, abdominal pain, blood streaked bowels, constipated, diarrhea, dysphagia, difficulty swallowing, hematemesis, melena, nausea, poor appetite, poor fluid intake, rectal bleeding, rectal pain, vomiting, others Genitourinary: denies: abnormal vagina bleeding, burning, dyspareunia, dysuria, flank pain, frequency, hematuria, incontinence, pain, , vagina discharge, urgency, others Neurological: reports: dizziness, headache; denies: fainting, left sided numbness, left sided weakness, numbness, paresthesia, pre-existing deficit, right sided numbness, right sided weakness, seizure, speech problems, tingling, tremors, weakness, others Musculoskeletal: denies: back pain, gout, joint pain, joint swelling, muscle pain, muscle stiffness, neck pain, others Integumetry: denies: bruises, change in color, change in hair/nails, dryness, laceration, lesions, lumps, rash, wounds, others Allergic/Immunocompromised: denies: Difficulty Healing, Frequent Infections, Hives, Itching, others Hematologic/Lymphatic: denies: anemia, blood clots, easy bleeding, easy bruisi ng, swollen glands, others Endocrine: denies: excessive hunger, excessive sweating, excessive thirst, exce ssive urination, flushing, intolerance to cold, intolerance to heat, unexplained weight gain, unexplained weight loss, others Psychiatric: denies: anxiety, bipolar disorder, depression, hopeless, panic disorder, schizophrenia, sleepless, suicidal, others All Other Systems: Reviewed and Negative Physical Exam General Appearance: Moderate Distress HEENT: Normal ENT Inspection, Pharynx Normal, TMs Normal Neck: Full Range of Motion, Non-Tender, Normal, Normal Inspection Respiratory: Chest Non-Tender, Lungs Clear, No Accessory Muscle Use, No Respiratory Distress, Normal Breath Sounds Cardiovascular: No Edema, No JVD, No Murmur, No Gallop, Normal Peripheral Pulses, Regular Rate/Rhythm Breast Exam: Deferred Gastrointestinal: No Organomegaly, Non Tender, No Pulsatile Mass, Normal Bowel Sounds, Soft Genitalia: Deferred Pelvic: Deferred Rectal: Deferred Extremities: No calf tenderness, Normal capillary refill, Normal inspection, Normal range of motion, Non-tender, No pedal edema Musculoskeletal : Apperance: Normal Neurologic: Alert, faculty i on call medical assistant II-XII nml as Tested, No Motor Deficits, Normal Affect, Normal Mood, No Sensory Deficits Cerebellar Function: Normal Reflexes: Normal Skin: Dry, Normal Color, Warm Peripheral Pulses: 3+ Radial (R), 3+ Radial (L) Lymphatic: No Adenopathy EKG EKG : Pulse Rate (adult): 65 [place]: Normal Cardiac Rhythm: NSR Block: None Hypertrophy: None ST: Normal Was a procedure done? Was a procedure done?: No CP Differential Dx Differential Diagnosis: A-fib, A-Flutter, Angina, Anxiety / Panic Attack, Atrial Dysrhythmia, Electrolyte Disorder Differential Diagnosis: CHF Differential Diagnosis: Angina, Chest Wall Pain, Costochondritis X-Ray, Labs, Meds, VS Vital Signs Date Time Temp Pulse Resp B/P (MAP) Pulse Ox O2 Delivery O2 Flow Rate FiO2 06/13/25 11:49 65 06/13/25 11:12 65 06/13/25 10:48 65 06/13/25 10:44 97.9 64 17 120/80 (93) 98 97.9 Lab Test 06/13/25 11:34 06/13/25 10:55 06/13/25 10:53 Range/Units Troponin I High Sensitivity 8 10 </=34 ng/L Urine Color Colorless Yellow Urine Clarity Clear Clear Urine pH 6.5 5.0-9.0 Urine Specific [place] 1.002 1.001-1.035 Urine Protein Negative Negative Urine Ketones Negative Negative Urine Blood Negative Negative /uL Urine Nitrite Negative Negative Urine Bilirubin Negative Negative Urine Urobilinogen Normal Negative mg/dL Urine Leukocyte Esterase Negative Negative /uL Urine RBC <1 0 - 4 /hpf Urine Microscopic WBC < 1 0-5 /HPF Urine Squamous Epithelial Cells None seen <5 /hpf Urine Bacteria Few H None Seen /hpf Urine Glucose Normal Normal mg/dL White Blood Count 5.6 4.4-10.8 10^3/uL Red Blood Count 3.57 L 4.0-5.20 10^6/uL Hemoglobin 12.7 12.2-16.2 g/dL Hematocrit 37.6 36.0-46.0 % Mean Corpuscular Volume 105.3 H 80.0-100.0 fL Mean Corpuscular Hemoglobin 35.7 H 28.0-32.0 pg Mean Corpuscular Hemoglobin Concent 33.8 32.0-36.0 g/dL Red Cell Distribution Width 13.2 11.8-14.3 % Platelet Count 179 140-450 10^3/uL Mean Platelet Volume 10.4 6.9-10.8 fL Neutrophils (%) (Auto) 68.7 37.0-80.0 % Lymphocytes (%) (Auto) 22.0 10.0-50.0 % Monocytes (%) (Auto) 6.7 0.0-12.0 % Eosinophils (%) (Auto) 1.5 0.0-7.0 % Basophils (%) (Auto) 1.1 0.0-2.0 % Neutrophils # (Auto) 3.9 1.6-8.6 10 ^3/uL Lymphocytes # (Auto) 1.2 0.4-5.4 10 ^3/uL Monocytes # (Auto) 0.4 0-1.3 10 ^3/uL Eosinophils # (Auto) 0.1 0-0.8 10 ^3/uL Basophils # (Auto) 0.1 0-0.2 10 ^3/uL Nucleated Red Blood Cells 0.4 % Platelet Estimate Adequate Clumped Platelets None Sodium Level 137 136-145 mmol/L Potassium Level 3.7 3.5-5.1 mmol/L Chloride Level 101 98-107 mmol/L Carbon Dioxide Level 28 20-31 mmol/L Anion Gap 8 5-15 Blood Urea Nitrogen 15 9-23 mg/dL Creatinine 0.91 0.550-1.02 mg/dL Glomerular Filtration Rate Calc 63 >90 mL/min BUN/Creatinine Ratio 16.5 10.0-20.0 Serum Glucose 95 74-106 mg/dL Calcium Level 9.8 8.7-10.4 mg/dL Patient alert. Complaining of chest pain. Vitals stable. Answering questions. History of coronary artery disease with pacemaker placement. Possibly pacemaker needs to be checked. Possible CHF. Reviewed her previous visit. Explained to the patient. Continue to monitor. EKG reviewed does not show any acute changes. [facility] [place] [id number] [place] [id number] Ph: [phone] DIAGNOSTIC IMAGING Diagnostic Imaging Report : [id number] Signed PATIENT: SOHAN RODRIGUEZ ACCT: [id number] UNIT: [id number] : 1940 LOC: ER ROOM / BED: / AGE / SEX: 84 / F ADM STATUS: REG ER SERVICE 1055 ORDERING PHYSICIAN: CARMEN BANEGAS MD PROCEDURE(s): CXRP - CHEST PORTABLE REASON: sob ORDER NUMBER(s): [id number], ACCESSION NUMBER(s): [id number] INDICATION: sob TECHNIQUE: Frontal view of the chest. COMPARISON: XY CHEST PORTABLE on DOS: 04/17/25, XY CHEST PORTABLE on DOS: 12/19/24 FINDINGS: Cardiomegaly. Left-sided pacemaker / AICD. Right shoulder arthroplasty. There is no evidence of pleural disease. The lungs are clear. . IMPRESSION: 1. No evidence of acute disease. ATED BY: NIKKO YANEZ MD DICTATED DATE/TIME: 06/13/25 1132 SIGNED BY: NIKKO YANEZ MD SIGNED DATE/TIME: 06/13/25 1132 CC: Time of 1ST Reevaluation: 11:20 Reevaluation 1ST: Unchanged Patient Education/Counseling: Diagnosis, Treatment Family Education/Counseling: No Family Present SEPSIS Sepsis Screen Physician Orders Electrocardigram (06/13/25 13:55) Chest Portable (06/13/25 10:55) Troponin-I Hs (06/13/25 13:55) Assess Pacemaker Function (06/13/25 11:22) Vital Signs Date Time Temp Pulse Resp B/P (MAP) Pulse Ox O2 Delivery O2 Flow Rate FiO2 06/13/25 11:49 65 06/13/25 11:12 65 06/13/25 10:48 65 06/13/25 10:44 97.9 64 17 120/80 (93) 98 97.9 Laboratory Tests Test 06/13/25 10:53 White Blood Count 5.6 10^3/uL (4.4-10.8) Departure 1 Departure Time of Disposition: 11:20 Impression: Primary Impression: CHF (congestive heart failure) Qualified Codes: I50.43 - Acute on chronic combined systolic (congestive) and diastolic (congestive) heart failure Additional Impressions: Chest pain of unknown etiology Pacemaker malfunction Qualified Codes: T82.111A - Breakdown (mechanical) of cardiac pulse generator (battery), initial encounter Disposition: ADMITTED INPATIENT Admit to: Med Surg Condition: Guarded Critical Care Note Critical Care Time?: No Stability Stability form required: No Heart Score Heart Score: Heart Score Response (Comments) Value History N/A 0 EKG Normal 0 Age N/A 0 Risk Factors 1 or 2 risk factors 1 Troponin Normal limit 0 Total 1 I personally scribed for CARMEN BANEGAS MD ([email or web address]) on 06/13/25 at 11:12. Electronically submitted by Caitlin Pastor (QA on Request). I personally scribed for CARMEN BANEGAS MD ([email or web address]) on 06/13/25 at 13:27. Electronically submitted by Caitlin Pastor (QA on Request). I personally scribed for CARMEN BANEGAS MD ([email or web address]) on 06/13/25 at 13:29. Electronically submitted by Caitlin Pastor (QA on Request). CARMEN BANEGAS MD Jun 13, 2025 11:12
--- NOTE | 2025-06-13 11:35 | DVH ---
INDICATION: sob TECHNIQUE: Frontal view of the chest. COMPARISON: XY CHEST PORTABLE on DOS: 04/17/25, XY CHEST PORTABLE on DOS: 12/19/24 FINDINGS: Cardiomegaly. Left-sided pacemaker / AICD. Right shoulder arthroplasty. There is no evidence of ple ural disease. The lungs are clear. . IMPRESSION: 1. No evidence of acute disease.
[2025-06-13 11:50] LABS: Chloride 101 mmol/L (98-107); Potassium 3.7 mmol/L (3.5-5.1); Sodium 137 mmol/L (136-145)
[2025-06-13 11:51] LABS: Anion Gap 8 (5-15); Calcium 9.8 mg/dL (8.7-10.4); Carbon Dioxide 28 mmol/L (20-31)
--- NOTE | 2025-06-13 11:51 | ECG ---
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
[2025-06-13 11:53] LABS: Hematocrit 37.6 % (36.0-46.0)
[2025-06-13 11:55] LABS: Hemoglobin 12.7 g/dL (12.2-16.2); Mean Corpuscular Hemoglobin 35.7 pg (28.0-32.0); Mean Corpuscular Volume 105.3 fL (80.0-100.0); Nucleated Red Blood Cells % 0.4 %
[2025-06-13 11:56] LABS: BUN/Creatinine Ratio 16.5 (10.0-20.0); Blood Urea Nitrogen 15 mg/dL (9-23); Glucose 95 mg/dL (74-106)
[2025-06-13 12:15] LABS: Urine Protein, UAD Negative (Negative)
[2025-06-13 14:21] VITALS: BP 102/58; PULSE 73; RESP 18; O2SAT 98
== END 2025-06-13 17:24 | disposition left against medical advice (07) ==
LOC: ER 10:41
DX: I11.0 Hypertensive heart disease with heart failure (principal); I50.43 Acute on chronic combined systolic (congestive) and diastolic (congestive) heart failure; R07.89 Other chest pain; T82.119A Breakdown (mechanical) of unspecified cardiac electronic device, initial encounter; E78.5 Hyperlipidemia, unspecified; Z79.82 Long term (current) use of aspirin; Z79.890 Hormone replacement therapy; Z79.899 Other long term (current) drug therapy; Z88.0 Allergy status to penicillin; Z88.1 Allergy status to other antibiotic agents; Z88.5 Allergy status to narcotic agent; Z88.6 Allergy status to analgesic agent; Z95.0 Presence of cardiac pacemaker; Y69 Unspecified misadventure during surgical and medical care; Y92.89 Other specified places as the place of occurrence of the external cause
CPT/HCPCS: 36415; 71045; 80048; 81001; 84484; 85025; 93005

== ENCOUNTER 2025-06-14 12:35 | Outpatient (CLI) | payer MEDICARE ==
--- NOTE | 2025-06-14 14:02 | DVH ---
XY CHEST TWO VIEWS ROUTINE CLINICAL HISTORY: SOB COMPARISON: None TECHNIQUE: Frontal and lateral view of the chest was obtained FINDINGS: Lines and Tubes: Left-sided pacemaker/AICD Lungs: No focal consolidation. Pleura: No effusion. No pneumothorax. Cardiomediastinal contours: Unremarkable Bones: No acute osseous abnormality. IMPRESSION: No acute cardiopulmonary disease.
== END 2025-06-14 17:00 | disposition home or self-care (01) ==
LOC: Rad HDHVI 12:35
PROVIDERS: ATTEND Internal Medicine Cardiovascular Disease
DX: R06.02 Shortness of breath (principal)
CPT/HCPCS: 71046